=== PATIENT | female | born 1970 | race African-American/Black ===

== ENCOUNTER 2017-01-13 11:32 | Emergency (ER) | payer OTHER ==
[2017-01-13 11:40] VITALS: BP 164/74; BMI 29.6
--- NOTE | 2017-01-13 12:19 | DR.GENAD ---
HPI - PCP Primary Care Physician: ??? - HPI Comment HPI Comment: HISTORY BELOW. - Complaint/Symptoms Chief Complaint Doctors Comments: OUT OF CLONIDINE. TAKE 0.3MG TID. NEXT DOSE DUE AT 2PM TODAY. BP ELEVATED IN ED. Chief Complaint:: PT STATES " I TOOK MY LAST CLONDINE THIS AM AND I AM OUT".. 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 - Family History History of Family Medical Conditions: Yes Family Medical History: Diabetes Mellitus, Hypertension - Social History Does patient currently use any type of tobacco product: No Have you used tobacco products in the last 12 months: No Type of Tobacco Use: None Does any household member use tobacco: No Alcohol Use: None Do you use any recreational Drugs:: No Lives With: Family Lives Where: Home - infectious screening In the last 2 months have you had wt loss of >10#?: NO Have you had fever, night sweats or hemotysis?: No Have you traveled outside the country in the last 6 months?: No Isolation: Standard ROS - Review of Systems Constitutional: No Symptoms Reported Eyes: No Symptoms Reported ENTM: No Symptoms Reported Respiratoy: No Symptoms Reported Cardiovascular: No Symptoms Reported Gastrointestinal/Abdominal: No Symptoms Reported Genitourinary: No Symptoms Reported Neurological: No Symptoms Reported Musculoskeletal: Back Pain (CHRONIC) Integumentary: No Symptoms Reported Hematologic/Lymphatic: No Symptoms Reported Endocrine: No Symptoms Reported All Other Systems: Reviewed and Negative PE - Vital Signs Vitals: Pulse Rate 111 Respiratory Rate 18 Blood Pressure [Left Arm] 111/72 Blood Pressure [Right Arm] 122/78 Blood Pressure 164/74 O2 Sat by Pulse Oximetry 97 - General Limitations: No Limitations - Head Head Exam: Normal Inspection - Eyes Eye exam: Normal Appearance - ENT ENT Exam: Normal External Ear Exam External Ear Exam: Normal External Inspection TM/Canal Exam: Bilateral Normal Mouth Exam: Normal Inspection Throat Exam: Normal Inspection - Neck Neck Exam: Trachea Midline - Chest Chest Inspection: Symmetric Chest Wall Rise - Respiratory Respiratory Exam: Normal Lung Sounds Bilat Respiratory Exam: Bilateral Clear to Auscultation - Cardiovascular Cardiovascular Exam: Regular Rate, Normal Rhythm, Normal Heart Sounds - Abdominal Exam Abdominal Exam: Normal Inspection - Extremities Extremities Exam: Normal Inspection - Back Back Exam: Normal Inspection - Neurologic Neurological Exam: Alert, Oriented X3 - Skin Skin Exam: Normal Color MDM - Differential Diagnosis Differential Diagnosis: HYPERTENSION Course - Education/Counseling Education/Counseling: Patient, Education Educated On: Diagnosis, Needs for Follow Up - Diagnosis Discharge Problem: Hypertension Qualifiers: Hypertension type: essential hypertension Qualified Code(s): I10 - Essential ( primary) hypertension - Discharge Plan Condition: Stable Prescriptions: Clonidine [Catapres-Tts 1] 0.1 mg TD TID #21 dis - Follow ups/Referrals Follow ups/Referrals: NFD,None [Primary Care Provider] - 3 days - Instructions Instructions: Hypertension Additional Instructions: RETURN TO ED IF WORSE.
== END 2017-01-13 12:25 | disposition home or self-care (01) ==
LOC: ER 11:32
DX: I10 Essential (primary) hypertension (principal)
CPT/HCPCS: 99281; 99282

== ENCOUNTER 2017-01-20 09:49 | Emergency (ER) | payer OTHER ==
[2017-01-20 10:02] VITALS: BP 136/105; BMI 27.8
--- NOTE | 2017-01-20 10:06 | DR.HYPOGLY ---
HPI - Time Seen Time seen: 09:57 - PCP Primary Care Physician: NFD - Complaint Chief Complaint Doctors Comments: Patient states that she is visiting from [place] , and she has been having problems with elevated blood sugars. She also admits to a risen of the left axilla that hurts. Chief Complaint:: PT. STATES HER BLOOD SUGAR HAS BEEN RUNNING HIGH FOR SOME DAYS NOW. PT. STATES SHE HAS A RISING OR SOMETHING UNDER HER LEFT ARM BECAUSE IT HURTS AND IT'S BEEN THERE FOR A WHILE. 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 - Family History History of Family Medical Conditions: Yes Family Medical History: Diabetes Mellitus, Hypertension - Social History Does patient currently use any type of tobacco product: No Have you used tobacco products in the last 12 months: No Type of Tobacco Use: None Does any household member use tobacco: No Alcohol Use: None Do you use any recreational Drugs:: No Lives With: Family Lives Where: Home - infectious screening In the last 2 months have you had wt loss of >10#?: NO Have you had fever, night sweats or hemotysis?: No Have you traveled outside the country in the last 6 months?: No Isolation: Standard ROS - Review of Systems Eyes: No Symptoms Reported ENTM: No Symptoms Reported Respiratoy: No Symptoms Reported Cardiovascular: No Symptoms Reported Gastrointestinal/Abdominal: No Symptoms Reported Genitourinary: No Symptoms Reported Neurological: No Symptoms Reported Musculoskeletal: No Symptoms Reported Integumentary: No Symptoms Reported Hematologic/Lymphatic: No Symptoms Reported Endocrine: No Symptoms Reported Psychiatric: No Symptoms Reported All Other Systems: Reviewed and Negative PE - Vital Signs Vitals: Temperature 98.3 F Pulse Rate 93 Respiratory Rate 18 Blood Pressure [Left Arm] 111/72 Blood Pressure [Right Arm] 122/78 Blood Pressure 136/105 O2 Sat by Pulse Oximetry 97 - General Limitations: No Limitations General Appearance: Alert, In No Apparent Distress - Eyes Eye exam: Normal Appearance, PERRL, EOMI Pupils: Regular, Round: Bilateral Sclera/Conjunctival: Normal Inspection: Bilateral - ENT ENT Exam: Normal Exam, Normal Oropharynx Nose Exam: Normal Nose Exam Mouth Exam: Normal Inspection Throat Exam: Normal Inspection - Neck Neck Exam: Normal Inspection, Full ROM - Chest Chest Inspection: Normal Inspection - Respiratory Respiratory Exam: Normal Lung Sounds Bilat Respiratory Exam: Bilateral Clear to Auscultation - Cardiovascular Cardiovascular Exam: Regular Rate, Normal Rhythm - Abdominal Exam Abdominal Exam: Normal Inspection, Normal Bowel Sounds Abdominal Tenderness: negative: RUQ, RLQ, LUQ, LLQ, Epigastrium, Suprapubic, Diffuse, Mild, Moderate, Severe, Other - Extremities Extremities Exam: Normal Inspection - Back Back Exam: Normal Inspection - Neurologic Neurological Exam: Alert, Oriented X3, CN II-XII Intact Speech: Fluid Speech - Skin Skin Exam: Warm, Dry (left axilla anterior superior border with a papule, non erythematous but tender) Course - Reevaluation 1st: Improved ROR - Labs Reviewed Result Diagrams: 01/20/17 10:40 01/20/17 10:40 Laboratory: WBC 13.5 X10^3/uL (3.6-10.0) H 01/20/17 10:40 RBC 4.66 X10^6/uL (3.5-5.4) 01/20/17 10:40 Hgb 12.8 g/dL (12.0-16.0) 01/20/17 10:40 Hct 38.5 % (36.0-47.0) 01/20/17 10:40 MCV 82.5 fL (80.0-100.0) 01/20/17 10:40 MCH 27.4 pg (27.0-34.0) 01/20/17 10:40 MCHC 33.3 g/dL (33.0-35.0) 01/20/17 10:40 RDW 15.0 % (11.6-16.5) 01/20/17 10:40 Plt Count 610 X10^3/uL (150.0-450.0) H 01/20/17 10:40 Plt Count Comment Increased (ADEQUATE) A 01/20/17 10:40 MPV 8.1 fL (7.4-11.0) 01/20/17 10:40 Neut % 59.6 % (42.0-75.0) 01/20/17 10:40 Lymph % 31.8 % (21.0-51.0) 01/20/17 10:40 [place] % 5.9 % (0.0-13.0) 01/20/17 10:40 Eos % 1.3 % (0.9-2.9) 01/20/17 10:40 Baso % 1.4 % (0.2-1.0) H 01/20/17 10:40 Neut # 8.1 x10^3/uL (2.2-4.8) H 01/20/17 10:40 Lymph # 4.3 X10^3/uL (1.3-2.9) H 01/20/17 10:40 [place] # 0.8 x10^3/uL (0.3-0.8) 01/20/17 10:40 Eos # 0.2 x10^3/uL (0.0-0.2) 01/20/17 10:40 Baso # 0.2 X10^3/uL (0.0-0.1) H 01/20/17 10:40 Absolute Nucleated RBC 0.0 /100WBC 01/20/17 10:40 Plt Morphology Comment Normal (NORMAL) 01/20/17 10:40 RBC Morphology Normal (NORMAL) 01/20/17 10:40 Sodium 136 mmol/L (136-145) 01/20/17 10:40 Corrected Sodium 140 mmol/L (136-145) 01/20/17 10:40 Potassium 4.4 mmol/L (3.5-5.1) 01/20/17 10:40 Chloride 102 mmol/L (98-107) 01/20/17 10:40 Carbon Dioxide 30.4 mmol/L (21-32) 01/20/17 10:40 BUN 19 mg/dL (7-18) H 01/20/17 10:40 Creatinine 1.15 mg/dL (0.55-1.02) H 01/20/17 10:40 Est GFR (MDRD) Af Amer > 60 (>60) 01/20/17 10:40 Est GFR (MDRD) Non-Af 54 (>60) L 01/20/17 10:40 Glucose 280 mg/dL (65-99) H 01/20/17 10:40 Hemoglobin A1c 8.9 % (4.5-6.2) H 01/20/17 10:40 Calcium 10.5 mg/dL (8.5-10.1) H 01/20/17 10:40 Corrected Calcium TNP 01/20/17 10:40 Total Bilirubin 0.20 mg/dL (0.2-1.0) 01/20/17 10:40 AST 22 Units/L (15-37) 01/20/17 10:40 ALT 40 Units/L (12-78) 01/20/17 10:40 Alkaline Phosphatase 80 Units/L (46-116) 01/20/17 10:40 C-Reactive Protein 4.60 mg/L (0-3.0) H 01/20/17 10:40 Total Protein 7.0 g/dL (6.4-8.2) 01/20/17 10:40 Albumin 3.7 g/dL (3.4-5.0) 01/20/17 10:40 Globulin 3.3 g/dL (2.5-4.5) 01/20/17 10:40 Albumin/Globulin Ratio 1.1 Ratio (1.1-2.1) 01/20/17 10:40 Specimen Type Clean catch urine 01/20/17 11:49 Urine Color Yellow (YELLOW) 01/20/17 11:49 Urine Appearance Clear (CLEAR) 01/20/17 11:49 Urine pH 5.0 (5.0 - 8.0) 01/20/17 11:49 Ur Specific [place] 1.020 (1.000-1.030) 01/20/17 11:49 Urine Protein 2+ (NEGATIVE) 01/20/17 11:49 Urine Glucose (UA) 3+ (NEGATIVE) 01/20/17 11:49 Urine Ketones Negative (NEGATIVE) 01/20/17 11:49 Urine Occult Blood Negative (NEGATIVE) 01/20/17 11:49 Urine Nitrite Negative (NEGATIVE) 01/20/17 11:49 Urine Bilirubin Negative (NEGATIVE) 01/20/17 11:49 Urine Urobilinogen Normal (NORMAL) 01/20/17 11:49 Ur Leukocyte Esterase Negative (NEGATIVE) 01/20/17 11:49 Urine RBC None seen /HPF (NEGATIVE) 01/20/17 11:49 Urine WBC None seen /HPF (NEGATIVE) 01/20/17 11:49 Ur Squamous Epith Cells Rare /HPF (NEGATIVE) 01/20/17 11:49 Urine Bacteria Negative /HPF (NEGATIVE) 01/20/17 11:49 Ur Culture Indicated? No/not indicated 01/20/17 11:49 - Diagnosis Discharge Problem: Carbuncle of axilla, Thrombocytosis - Discharge Plan Condition: Stable - Follow ups/Referrals Follow ups/Referrals: NFD,None [Primary Care Provider] - 3 days - Instructions
[2017-01-20] MEDS ORDERED: NS 1000 ML 1,000 ML IV ONE (10:09)
[2017-01-20] MEDS ORDERED: CLEOCIN VIAL 600 MG 900 MG in D5W 50 ML IV 50 ML IV ONE (10:17)
[2017-01-20] MEDS ORDERED: NS 1000 ML 1,000 ML ONE (10:37)
[2017-01-20 10:53] LABS: BASOPHILS # (AUTO) 0.2 X10^3/uL (0.0-0.1); BASOPHILS % (AUTO) 1.4 % (0.2-1.0); EOSINOPHILS # (AUTO) 0.2 x10^3/uL (0.0-0.2); EOSINOPHILS % (AUTO) 1.3 % (0.9-2.9); HEMATOCRIT 38.5 % (36.0-47.0); HEMOGLOBIN 12.8 g/dL (12.0-16.0); LYMPHOCYTES # (AUTO) 4.3 X10^3/uL (1.3-2.9); LYMPHOCYTES % (AUTO) 31.8 % (21.0-51.0); MEAN CORPUSCULAR HEMOGLOBIN 27.4 pg (27.0-34.0); MEAN CORPUSCULAR HGB CONC 33.3 g/dL (33.0-35.0); MEAN CORPUSCULAR VOLUME 82.5 fL (80.0-100.0); MEAN PLATELET VOLUME 8.1 fL (7.4-11.0); MONOCYTES # (AUTO) 0.8 x10^3/uL (0.3-0.8); MONOCYTES % (AUTO) 5.9 % (0.0-13.0); NEUTROPHILS # (AUTO) 8.1 x10^3/uL (2.2-4.8); NEUTROPHILS % (AUTO) 59.6 % (42.0-75.0); PLATELET COUNT 610 X10^3/uL (150.0-450.0); RED BLOOD COUNT 4.66 X10^6/uL (3.5-5.4); WHITE BLOOD COUNT 13.5 X10^3/uL (3.6-10.0)
[2017-01-20] MEDS ORDERED: CLEOCIN 300 MG IV PREMIX 300 MG/50 ML BAG IV ONE (10:57)
[2017-01-20] MEDS ORDERED: CLEOCIN VIAL 600 MG ONE (10:57)
[2017-01-20 11:01] LABS: ALANINE AMINOTRANSFERASE 40 Units/L (12-78); ALBUMIN 3.7 g/dL (3.4-5.0); ALKALINE PHOSPHATASE 80 Units/L (46-116); ASPARTATE AMINO TRANSFERASE 22 Units/L (15-37); BLOOD UREA NITROGEN 19 mg/dL (7-18); CALCIUM 10.5 mg/dL (8.5-10.1); CARBON DIOXIDE 30.4 mmol/L (21-32); CHLORIDE 102 mmol/L (98-107); COR NA(FOR HYPERGLY) 140 mmol/L (136-145); CREATININE 1.15 mg/dL (0.55-1.02); GLUCOSE 280 mg/dL (65-99); SODIUM 136 mmol/L (136-145); eGFR BLACK RACES > 60 (>60); eGFR NON BLACK RACES 54 (>60)
[2017-01-20 11:02] LABS: PLATELET MORPHOLOGY COMMENT NORMAL (NORMAL)
[2017-01-20 11:05] LABS: HEMOGLOBIN A1C 8.9 % (4.5-6.2)
[2017-01-20] MEDS ORDERED: TORADOL 30 MG VIAL IVP ONE (12:06)
[2017-01-20] MEDS ORDERED: TORADOL 30 MG VIAL ONE (12:07)
[2017-01-20 12:10] LABS: BILIRUBIN,URINE NEGATIVE (NEGATIVE); BLOOD/HEMOGLOBIN,URINE NEGATIVE (NEGATIVE); GLUCOSE, URINE 3+ (NEGATIVE); KETONES,URINE NEGATIVE (NEGATIVE); LEUKOCYTE ESTERASE ,URINE NEGATIVE (NEGATIVE); NITRITES,URINE NEGATIVE (NEGATIVE); PROTEIN,URINE 2+ (NEGATIVE); UROBILINOGEN,URINE NORMAL (NORMAL)
[2017-01-20 12:20] LABS: APPEARANCE,URINE CLEAR (CLEAR); BACTERIA,URINE NEGATIVE /HPF (NEGATIVE); COLOR,URINE YELLOW (YELLOW); RBC,URINE NONE SEEN /HPF (NEGATIVE); SQUAMOUS EPITHELIAL CELL,UR RARE /HPF (NEGATIVE)
== END 2017-01-20 13:05 | disposition home or self-care (01) ==
LOC: ER 09:56
DX: D47.3 Essential (hemorrhagic) thrombocythemia (principal); L02.432 Carbuncle of left axilla
CPT/HCPCS: 36415; 36591; 80053; 81001; 83036; 85025; 86140; 96365; 96374; 99282; 99283; A4222; S0077; J1885

== ENCOUNTER 2019-06-06 21:44 | Observation (INO) ==
[2019-06-06 21:57] VITALS: BMI 27.8
--- NOTE | 2019-06-06 22:20 | DR.NAUSEAF ---
HPI - Time Seen Time seen: 22:08 - Primary Care Physician Primary Care Physician: NFD - Complaints Chief Complaint Doctors Comments: Patient states she has been vomiting and unable to keep anything down for three days. States she was at her daughter's house and fell down the steps today and hurt her left knee. She has been able to walk on it but it hurts. states she is have a severe headache and this is the worst headache or her life because she do not usually have a headache. States she is taking Dilaudid 4mg three times daily because she has herniated discs in her back and she has had blood clots in her lung, chest and legs and she is taking Eliquis 10mg daily. She denies tobacco or alcohol usage. States she has not been able to keep her medicines down today. Patient states she had Stage 4 Hodgkins Lymphoma and they took her speen out. she is seeing an inspector integrated circuits about her hypercalcema. States she can tell her calcium is up because she is cramping and is nauseated Chief Complaint:: PT STATES THAT SHE HAS HYPERCALCEMIA. STATES SHE HAS BEEN THROWING UP ALL DAY. STATES SHE ALSO FELL DOWN THE STAIRS AND HURT HER LEFT KNEE. STATES "I JUST FEEL BAD." - Reviewed Nurses Notes Reviewed: Yes - Source History Provided: Patient - Mode of Arrival Mode of Arrival: Ambulatory - Timing Onset of Chief Complaint: 06/05/19 - Context Onset: Spontaneous Recent: None Possible Ingestion: Unknown : No History of: None - Quality Quality: Bilious - Associated Signs and Symptoms Abdominal Pain Quality: Aching, Sharp Abdominal Pain Location: Diffuse Symptoms: Abdominal Pain, Diarrhea PMH - PMH Past Medical History: Yes Past Medical History: COPD, Diabetes Past Surgical History: Yes Surgical History: Ortho Surgery, Spleenectomy - Family History History of Family Medical Conditions: Yes Family Medical History: Diabetes Mellitus, Hypertension - Social History Alcohol Use: None Do you use any recreational Drugs:: No Lives With: Alone Lives Where: Home - infectious screening In the last 2 months have you had wt loss of >10#?: NO Have you traveled outside the country in the last 6 months?: No Isolation: Standard ROS - Review of Systems Constitutional: No Symptoms Reported Eyes: No Symptoms Reported ENTM: No Symptoms Reported Respiratoy: No Symptoms Reported Cardiovascular: No Symptoms Reported Gastrointestinal/Abdominal: No Symptoms Reported, Abdominal Pain, Diarrhea, Nausea, Vomiting Genitourinary: No Symptoms Reported Neurological: No Symptoms Reported Musculoskeletal: No Symptoms Reported, Back Pain (chronic), Left, Knee Integumentary: No Symptoms Reported. negative: Wound (healed surgical scars left lower leg and knee) Hematologic/Lymphatic: Anemia, Blood Clots Endocrine: No Symptoms Reported Psychiatric: No Symptoms Reported PE - General Limitations: No Limitations General Appearance: Alert, In Distress (moderate) - Head Head Exam: Normal Inspection, Atraumatic, Normocephalic - Eyes Eye exam: Normal Appearance, PERRL, EOMI. negative: Scleral Icterus, Conjunctival Injection, Nystagmus, Miosis, Mydrasis, Periorbital Swelling, Periorbital Tenderness, Other - ENT ENT Exam: Normal Exam, Normal Oropharynx, Normal External Ear Exam, Mucous Membranes Moist, TM's Normal Bilaterally - Neck Neck Exam: Normal Inspection, Full ROM, Trachea Midline - Chest Chest Inspection: Normal Inspection, Symmetric Chest Wall Rise - Respiratory Respiratory Exam: Normal Lung Sounds Bilat Respiratory Exam: Bilateral Clear to Auscultation - Cardiovascular Cardiovascular Exam: Regular Rate, Normal Rhythm, Normal Heart Sounds - Abdominal Exam Abdominal Exam: Normal Inspection, Normal Bowel Sounds, Soft, Distention, Tenderness (RUQ and hypogastric tenderness), Guarding Abdominal Tenderness: RUQ, RLQ, Epigastrium, Suprapubic, Moderate - Rectal Rectal Exam: Deferred - External Exam: Female: Deferred : Speculum Exam (Female): Deferred : Bimanual Exam (female): Deferred - Extremities Extremities Exam: Normal Inspection, Full ROM, Tenderness (left knee with healed surgical scars, tender; no erythema or swelling), Normal Capillary Refill - Back Back Exam: Normal Inspection, Full ROM - Neurologic Neurological Exam: Alert, Oriented X3, CN II-XII Intact, Reflexes Normal. negat yael: Normal Gait (gait not tested) - Psychiatric Psychiatric Exam: Normal Affect, Normal Mood, Agitated. negative: Depressed, Anxious, Flat Affect, Manic, Homicidal Ideation, Suicidal Ideation, Other - Skin Skin Exam: Warm, Dry, Intact, Normal Color. negative: Rash, Cyanosis, Diaphoresis, Erythema, Pallor, Mottled, Other - Vital Signs Vitals: Temperature 98 F Pulse Rate 90 Respiratory Rate 18 Blood Pressure [Left Arm] 111/72 Blood Pressure [Right Arm] 122/78 Blood Pressure 190/94 O2 Sat by Pulse Oximetry 97 Course - Consultation Called: 01:31 Call Returned: 01:31 (Dr. Zepeda to admit) - Education/Counseling Education/Counseling: Patient, Family Educated On: Treatment, Diagnosis, Needs for Follow Up ROR - Labs Reviewed Laboratory Results Reviewed?: Yes (All labs and x-ray results reviewed and discussed with patient) Result Diagrams: 06/07/19 00:20 06/07/19 00:20 - XRAY XRAY Interpreted by: Radiologist (CT Head: No acute intracranial abnormality. CT abdomen and pelvis: No acute abnormality. Hepatomegaly. constipation.), Self (Left knee: No acute osseous abnormality of the knee identified. Postsurgical changes. Pretibial swelling nonspecific.) XRAY Findings: CXR: No acute chest process.. Left knee:Postsurgical changes of proximal t - Labs Reviewed Laboratory: WBC 18.3 X10^3/uL (3.6-10.0) H 06/07/19 00:20 RBC 4.88 X10^6/uL (3.5-5.4) 06/07/19 00:20 Hgb 13.0 g/dL (12.0-16.0) 06/07/19 00:20 Hct 40.0 % (36.0-47.0) 06/07/19 00:20 MCV 82.0 fL (80.0-100.0) 06/07/19 00:20 MCH 26.7 pg (27.0-34.0) L 06/07/19 00:20 MCHC 32.6 g/dL (33.0-35.0) L 06/07/19 00:20 RDW 16.1 % (11.6-16.5) 06/07/19 00:20 Plt Count 531 X10^3/uL (150.0-450.0) H 06/07/19 00:20 MPV 8.4 fL (7.4-11.0) 06/07/19 00:20 Neut % (Auto) 44.7 % (42.0-75.0) 06/07/19 00:20 Lymph % (Auto) 46.0 % (21.0-51.0) 06/07/19 00:20 [place] % (Auto) 5.6 % (0.0-13.0) 06/07/19 00:20 Eos % (Auto) 1.9 % (0.9-2.9) 06/07/19 00:20 Baso % (Auto) 1.8 % (0.2-1.0) H 06/07/19 00:20 Neut # (Auto) 8.2 x10^3/uL (2.2-4.8) H 06/07/19 00:20 Lymph # (Auto) 8.4 X10^3/uL (1.3-2.9) H 06/07/19 00:20 [place] # (Auto) 1.0 x10^3/uL (0.3-0.8) H 06/07/19 00:20 Eos # (Auto) 0.3 x10^3/uL (0.0-0.2) H 06/07/19 00:20 Baso # (Auto) 0.3 X10^3/uL (0.0-0.1) H 06/07/19 00:20 Absolute Nucleated RBC 0.3 /100WBC 06/07/19 00:20 PT 13.0 SECONDS (11.8-14.3) 06/07/19 00:20 INR Target Range - 06/07/19 00:20 INR 1.02 (0.8-1.3) 06/07/19 00:20 APTT 28.6 SECONDS (22.9-36.5) 06/07/19 00:20 PTT Comment - 06/07/19 00:20 Sodium 134 mmol/L (136-145) L 06/07/19 00:20 Corrected Sodium 141 mmol/L (136-145) 06/07/19 00:20 Potassium 4.0 mmol/L (3.5-5.1) 06/07/19 00:20 Chloride 97 mmol/L (98-107) L 06/07/19 00:20 Carbon Dioxide 30.5 mmol/L (21-32) 06/07/19 00:20 BUN 10 mg/dL (7-18) 06/07/19 00:20 Creatinine 1.15 mg/dL (0.55-1.02) H 06/07/19 00:20 Est GFR (MDRD) Af Amer > 60 (>60) 06/07/19 00:20 Est GFR (MDRD) Non-Af 53 (>60) L 06/07/19 00:20 Glucose 402 mg/dL (65-99) H 06/07/19 00:20 Calcium 11.6 mg/dL (8.5-10.1) H 06/07/19 00:20 Corrected Calcium TNP 06/07/19 00:20 Magnesium 1.6 mg/dL (1.7-2.9) L 06/07/19 00:20 Total Bilirubin 0.30 mg/dL (0.2-1.0) 06/07/19 00:20 AST 27 Units/L (15-37) 06/07/19 00:20 ALT 49 Units/L (12-78) 06/07/19 00:20 Alkaline Phosphatase 148 Units/L (46-116) H 06/07/19 00:20 Creatine Kinase 148 Units/L (26-192) 06/07/19 00:20 CK-MB (CK-2) 3.0 ng/mL (0-4.0) 06/07/19 00:20 CK/CKMB % Calc 2.0 % (<4) 06/07/19 00:20 Troponin I 0.02 ng/mL (0-1.5) 06/07/19 00:20 Total Protein 7.9 g/dL (6.4-8.2) 06/07/19 00:20 Albumin 4.2 g/dL (3.4-5.0) 06/07/19 00:20 Globulin 3.7 g/dL (2.5-4.5) 06/07/19 00:20 Albumin/Globulin Ratio 1.1 Ratio (1.1-2.1) 06/07/19 00:20 Amylase 85 Units/L (25-115) 06/07/19 00:20 Lipase 443 Units/L (73-393) H 06/07/19 00:20 HCG, Qual Negative <10 mIU/mL 06/07/19 00:20 Opioid - Opioid Risk Tool Total: 0 Total Score Risk Category: Low Risk - Diagnosis Discharge Problem: Hypercalcemia, Gastroenteritis, Hyperglycemia, Hepatomegaly, Accelerated hypertension Chronic pancreatitis Qualifiers: Pancreatitis type: unspecified pancreatitis type Qualified Code(s): K86.1 - Other chronic pancreatitis Left knee pain Qualifiers: Chronicity: acute Qualified Code(s): M25.562 - Pain in left knee Headache Qualifiers: Headache chronicity pattern: unspecified pattern Intractability: not intractable Leukocytosis Qualifiers: Leukocytosis type: unspecified Qualified Code(s): D72.829 - Elevated white blood cell count, unspecified - Discharge Plan Condition: Stable - Follow ups/Referrals Follow ups/Referrals: NFD,None [Primary Care Provider] - 3 days - Instructions
[2019-06-06] MEDS ORDERED: ZOFRAN INJ 4 MG VIAL IVP ONE (22:24)
[2019-06-06] MEDS ORDERED: DEMEROL INJ IVP ONE (22:25)
[2019-06-06] MEDS ORDERED: PHENERGAN INJ 25 MG IM ONE ×2 (22:25→23:04)
[2019-06-06] MEDS ORDERED: NS 1000 ML 1,000 ML IV SCH (23:00)
[2019-06-06] MEDS ORDERED: DEMEROL INJ ONE (23:05)
--- NOTE | 2019-06-06 23:25 | CT ---
CT head without contrastIndication: Occipital and temporal headacheComparison: 02/02/2015Technique: CT images of the head were obtained without contrast. Automatic exposure control was utilized.Findings: There is no acute bleed, mass effect, or abnormal extra-axial collection. The ventricles are symmetric and nondilated. No acute osseous abnormality observed. The visualized paranasal sinuses and mastoid air cells are clear.Impression: No acute intracranial abnormality.Reported By:
--- NOTE | 2019-06-06 23:42 | CT ---
CT abdomen and pelvis without contrastIndication: Vomiting, diarrhea, abdominal distentionComparison: 01/15/2015Technique: CT images of the abdomen and pelvis were obtained without contrast. Automatic exposure control was utilized.Findings: There is mild subsegmental atelectasis of the lung bases. No acute osseous abnormality.Evaluation of the abdominal pelvic viscera is limited without contrast. Mild liver enlargement is similar to prior. The liver contours are normal. Interval splenectomy noted. Within noncontrast limitations, the gallbladder, stomach, pancreas, adrenals, and kidneys are unremarkable. No radiopaque ureteral stone or hydroureter is identified. There is mildly increased colonic stool burden, suggesting constipation. Otherwise, no marked thickening or dilatation of the lower GI tract is identified. The appendix is normal. Uterus is noted. The urinary bladder and rectum are unremarkable. No free fluid or bulky adenopathy.There is nonspecific subcutaneous fat stranding along the lower abdominal wall, more prominent on the left. No soft tissue gas or associated collection is observed.Impression: No acute abnormality identified within the abdomen and pelvis, within non contrast limitations.Suggestion of constipation. Stable hepatomegaly. Interval splenectomy.Nonspecific subcutaneous fat stranding of the lower abdominal wall. Correlate with exam.Reported By:
[2019-06-07 00:30] LABS: BASOPHILS # (AUTO) 0.3 X10^3/uL (0.0-0.1); BASOPHILS % (AUTO) 1.8 % (0.2-1.0); EOSINOPHILS # (AUTO) 0.3 x10^3/uL (0.0-0.2); EOSINOPHILS % (AUTO) 1.9 % (0.9-2.9); LYMPHOCYTES # (AUTO) 8.4 X10^3/uL (1.3-2.9); MEAN CORPUSCULAR HEMOGLOBIN 26.7 pg (27.0-34.0); MEAN CORPUSCULAR HGB CONC 32.6 g/dL (33.0-35.0); MEAN PLATELET VOLUME 8.4 fL (7.4-11.0); MONOCYTES % (AUTO) 5.6 % (0.0-13.0); NEUTROPHILS # (AUTO) 8.2 x10^3/uL (2.2-4.8); NEUTROPHILS % (AUTO) 44.7 % (42.0-75.0); PLATELET COUNT 531 X10^3/uL (150.0-450.0); RED BLOOD COUNT 4.88 X10^6/uL (3.5-5.4); RED CELL DISTRIBUTION WIDTH 16.1 % (11.6-16.5); WHITE BLOOD COUNT 18.3 X10^3/uL (3.6-10.0)
--- NOTE | 2019-06-07 00:32 | RAD ---
Chest, 1 viewIndication: Chest painComparison: 02/02/2015Findings: Cardiac silhouette is unremarkable. There is a right jugular approach Port-A-Cath with the tip overlying the SVC. Aside from minimal basilar subsegmental atelectasis, the lungs are essentially clear without focal infiltrates or pleural effusion. No pneumothorax.Impression: No acute chest process.Reported By:
[2019-06-07 00:35] LABS: SERUM PREGNANCY TEST, QUAL NEGATIVE <10 mIU/mL
--- NOTE | 2019-06-07 00:35 | RAD ---
Left knee, 3 viewsIndication: Fall, knee painComparison: NoneFindings: There is methacrylate cement within the proximal tibial metaphysis. With nonspecific swelling overlying the proximal tibia. There is mild tricompartmental degenerative disease of the knee. No acute cortical disruption or malalignment is identified. No significant joint effusion.Impression: Postsurgical changes of the proximal tibia. Nonspecific overlying pretibial swelling. No acute osseous abnormality of the knee identified.Reported By:
[2019-06-07 00:45] LABS: BLOOD UREA NITROGEN 10 mg/dL (7-18); CALCIUM 11.6 mg/dL (8.5-10.1); CARBON DIOXIDE 30.5 mmol/L (21-32); CHLORIDE 97 mmol/L (98-107); COR NA(FOR HYPERGLY) 141 mmol/L (136-145); CREATININE 1.15 mg/dL (0.55-1.02); SODIUM 134 mmol/L (136-145); TROPONIN I 0.02 ng/mL (0-1.5); eGFR NON BLACK RACES 53 (>60)
[2019-06-07] MEDS ORDERED: BENADRYL INJ 50 MG VIAL IVP STA (00:48)
[2019-06-07 00:49] LABS: ALANINE AMINOTRANSFERASE 49 Units/L (12-78); ALBUMIN 4.2 g/dL (3.4-5.0); ALKALINE PHOSPHATASE 148 Units/L (46-116); AMYLASE 85 Units/L (25-115); ASPARTATE AMINO TRANSFERASE 27 Units/L (15-37); CREATINE KINASE 148 Units/L (26-192); LIPASE 443 Units/L (73-393); MAGNESIUM 1.6 mg/dL (1.7-2.9); TOTAL PROTEIN 7.9 g/dL (6.4-8.2)
[2019-06-07] MEDS ORDERED: BENADRYL INJ 50 MG VIAL ONE (00:49)
[2019-06-07] MEDS ORDERED: CATAPRES TAB 0.2 MG PO ONE (00:49)
[2019-06-07] MEDS ORDERED: ROCEPHIN VIAL 1 GRAM 1 G in NS 100 ML IV + SPIKE MINIBAG* 100 ML IV ONE (00:49)
[2019-06-07] MEDS ORDERED: CATAPRES TAB 0.2 MG ONE (00:49)
[2019-06-07] MEDS ORDERED: ROCEPHIN VIAL 1 GRAM ONE (00:51)
[2019-06-07] MEDS ORDERED: NS 100 ML IV + SPIKE MINIBAG* 100 ML IV ONE (00:52)
[2019-06-07] MEDS ORDERED: HumuLIN R IV STA (01:04)
[2019-06-07] MEDS ORDERED: LASIX IVP ONE ×2 (01:09→01:38)
[2019-06-07] MEDS ORDERED: HumuLIN R ONE ×2 (01:38→06:17)
[2019-06-07 03:23] LABS: BILIRUBIN,URINE NEGATIVE (NEGATIVE); BLOOD/HEMOGLOBIN,URINE NEGATIVE (NEGATIVE); GLUCOSE, URINE 4+ (NEGATIVE); KETONES,URINE NEGATIVE (NEGATIVE); LEUKOCYTE ESTERASE ,URINE NEGATIVE (NEGATIVE); NITRITES,URINE NEGATIVE (NEGATIVE); PH,URINE 6.5 (5.0 - 8.0); PROTEIN,URINE 3+ (NEGATIVE); UROBILINOGEN,URINE NORMAL (NORMAL)
[2019-06-07 03:26] LABS: APPEARANCE,URINE CLEAR (CLEAR); BACTERIA,URINE NEGATIVE /HPF (NEGATIVE); COLOR,URINE PALE YELLOW (YELLOW); RBC,URINE NONE SEEN /HPF (0-3); SQUAMOUS EPITHELIAL CELL,UR RARE /HPF (NEGATIVE)
[2019-06-07] MEDS: NS 1000 ML 1,000 ML IV SCH ×3 (03:27→17:10)
[2019-06-07] MEDS ORDERED: DILAUDID ONE (04:45)
[2019-06-07] MEDS: DILAUDID PO ONE ×2 (04:50→04:52)
[2019-06-07] MEDS: NEURONTIN CAP 300 MG PO SCH ×3 (05:51→21:17)
[2019-06-07] MEDS ORDERED: CATAPRES TAB 0.3 MG PO SCH (06:00)
[2019-06-07] MEDS ORDERED: MAGNESIUM SULFATE 1 GRAM/100 mL PREMIX 1 G/100 ML BAG IV ONE (06:15)
[2019-06-07] MEDS: MAGNESIUM SULFATE 1 GRAM/100 mL PREMIX 1 GM/100 ML BAG IV PRN ×2 (06:20→09:06)
[2019-06-07] MEDS: HumuLIN R SUBCUT PRN ×4 (06:22→20:16)
[2019-06-07 06:24] LABS: ALANINE AMINOTRANSFERASE 42 Units/L (12-78); ALBUMIN 3.7 g/dL (3.4-5.0); ALKALINE PHOSPHATASE 135 Units/L (46-116); ASPARTATE AMINO TRANSFERASE 25 Units/L (15-37); BLOOD UREA NITROGEN 11 mg/dL (7-18); CALCIUM 10.3 mg/dL (8.5-10.1); CHLORIDE 98 mmol/L (98-107); COR NA(FOR HYPERGLY) 142 mmol/L (136-145); CREATININE 1.03 mg/dL (0.55-1.02); SODIUM 134 mmol/L (136-145); TOTAL PROTEIN 6.8 g/dL (6.4-8.2); eGFR NON BLACK RACES > 60 (>60)
[2019-06-07] MEDS ORDERED: LIPITOR TAB 20 MG ONE (09:00)
[2019-06-07] MEDS ORDERED: ELIQUIS ONE (09:00)
[2019-06-07] MEDS ORDERED: ASPIRIN EC 81 MG PO ONE (09:00)
[2019-06-07] MEDS: ASPIRIN EC 81 MG PO SCH (09:04)
[2019-06-07] MEDS: LIPITOR TAB 20 MG PO SCH (09:05)
[2019-06-07] MEDS: ELIQUIS PO SCH (09:06)
[2019-06-07 09:15] LABS: BASOPHILS # (AUTO) 0.2 X10^3/uL (0.0-0.1); EOSINOPHILS # (AUTO) 0.5 x10^3/uL (0.0-0.2); EOSINOPHILS % (AUTO) 3.2 % (0.9-2.9); HEMATOCRIT 39.8 % (36.0-47.0); HEMOGLOBIN 12.9 g/dL (12.0-16.0); LYMPHOCYTES # (AUTO) 5.1 X10^3/uL (1.3-2.9); LYMPHOCYTES % (AUTO) 35.2 % (21.0-51.0); MEAN CORPUSCULAR HEMOGLOBIN 26.4 pg (27.0-34.0); MEAN CORPUSCULAR HGB CONC 32.5 g/dL (33.0-35.0); MEAN CORPUSCULAR VOLUME 81.2 fL (80.0-100.0); MEAN PLATELET VOLUME 8.1 fL (7.4-11.0); MONOCYTES # (AUTO) 0.9 x10^3/uL (0.3-0.8); MONOCYTES % (AUTO) 5.9 % (0.0-13.0); NEUTROPHILS % (AUTO) 54.7 % (42.0-75.0); PLATELET COUNT 522 X10^3/uL (150.0-450.0); RED CELL DISTRIBUTION WIDTH 15.9 % (11.6-16.5); WHITE BLOOD COUNT 14.6 X10^3/uL (3.6-10.0)
[2019-06-07 09:17] LABS: TSH (3RD GENERATION) 3.82 uIU/mL (0.358-3.74)
[2019-06-07 09:26] LABS: HEMOGLOBIN A1C 11.7 %
[2019-06-07] MEDS ORDERED: BENADRYL CAP/TAB 25 MG PO PRN (11:02)
[2019-06-07] MEDS ORDERED: PHENERGAN INJ 25 MG IM PRN (11:04)
[2019-06-07] MEDS ORDERED: DILAUDID INJ ONE (11:26)
[2019-06-07] MEDS: DILAUDID INJ IVP PRN ×3 (11:38→20:17)
[2019-06-07] MEDS ORDERED: PHENERGAN INJ 25 MG IM ONE (11:45)
[2019-06-07] MEDS ORDERED: BENADRYL CAP/TAB 25 MG PO ONE (11:45)
--- NOTE | 2019-06-07 12:52 | DR.H&P ---
H&P History & Physical for Day of: H&P Date: 06/07/19 Chief Complaint Chief Complaint: intractable nausea, vomiting and a fall Allergies Allergies Allergy/AdvReac Type Severity Reaction Status Date / Time acetaminophen Allergy Verified 06/07/19 01:54 [From Lorcet (hydrocodone)] azithromycin [From Zithromax] Allergy Verified 06/07/19 01:54 butorphanol [From Stadol] Allergy Verified 06/07/19 01:54 codeine Allergy Verified 06/07/19 01:54 hydralazine Allergy Verified 06/07/19 01:54 hydrocodone Allergy Verified 06/07/19 01:54 ibuprofen [From Motrin] Allergy Verified 06/07/19 01:54 ketorolac [From Toradol] Allergy Verified 06/07/19 01:54 levofloxacin [From Levaquin] Allergy Verified 06/07/19 01:54 metoclopramide [From Reglan] Allergy Verified 06/07/19 01:54 morphine Allergy Verified 06/07/19 01:54 nalbuphine [From Nubain] Allergy Verified 06/07/19 01:54 ondansetron [From Zofran] Allergy Verified 06/07/19 01:54 oxycodone Allergy Verified 06/07/19 01:54 propoxyphene Allergy Verified 06/07/19 01:54 [From Darvocet-N] tramadol [From Ultram] Allergy Verified 06/07/19 01:54 History of Present Illness History of Present Illness: Ms. Mcclure is a 49y/o female with a PMH of uncontrolled type 2 DM, Hodgkins lymphoma, Hx of PE and DVT, Hypercalcemia, HTN, chronic opioid user for disc herniation and COPD presented with a 2-3 day hx of nausea and vomiting. She reports not being able to keep anything down since yesterday, including her medications. She states this happens when her calcium is high so she presented to the ED for further care. She also had a fall at home where she injured her knee. ED work-up - Ct head negative - CTAP: enlarged liver and constipation, no acute infectious process - Knee XR: no acute fracture She received a dose of Rocephin, IVF fluids and Lasix. - BP: 190/94, one dose of clonidine Past Medical History Past Medical History: COPD, Diabetes, Hypertension and Liver Disease Additional Medical History: Hodgkins Lymphoma Pulmonary embolism amd DVT Past Surgical History Surgical History: Ortho Surgery, Spleenectomy and Other Family History Family Medical History: Diabetes Mellitus and Hypertension Social History Alcohol Use: None Drug Use: None Medications Home Medications: acetaminophen [From Lorcet (hydrocodone)] Allergy (Verified 06/07/19 01:54) azithromycin [From Zithromax] Allergy (Verified 06/07/19 01:54) butorphanol [From Stadol] Allergy (Verified 06/07/19 01:54) codeine Allergy (Verified 06/07/19 01:54) hydralazine Allergy (Verified 06/07/19 01:54) hydrocodone Allergy (Verified 06/07/19 01:54) ibuprofen [From Motrin] Allergy (Verified 06/07/19 01:54) ketorolac [From Toradol] Allergy (Verified 06/07/19 01:54) levofloxacin [From Levaquin] Allergy (Verified 06/07/19 01:54) metoclopramide [From Reglan] Allergy (Verified 06/07/19 01:54) morphine Allergy (Verified 06/07/19 01:54) nalbuphine [From Nubain] Allergy (Verified 06/07/19 01:54) ondansetron [From Zofran] Allergy (Verified 06/07/19 01:54) oxycodone Allergy (Verified 06/07/19 01:54) propoxyphene [From Darvocet-N] Allergy (Verified 06/07/19 01:54) tramadol [From Ultram] Allergy (Verified 06/07/19 01:54) CONTINUE taking the following medications apixaban [Eliquis] 5 mg PO DAILY 06/07/19 [History] aspirin [Aspir-81] 81 mg PO DAILY 06/07/19 [History] atorvastatin [Lipitor] 20 mg PO DAILY 06/07/19 [History] gabapentin [Neurontin] 800 mg PO DAILY 06/07/19 [History] hydromorphone [Dilaudid] 4 mg PO PRN 06/07/19 [History] promethazine 25 mg PO PRN 06/07/19 [History] Labs Result Diagrams: 06/07/19 09:00 06/07/19 05:50 Labs: Laboratory WBC 14.6 X10^3/uL (3.6-10.0) H 06/07/19 09:00 RBC 4.90 X10^6/uL (3.5-5.4) 06/07/19 09:00 Hgb 12.9 g/dL (12.0-16.0) 06/07/19 09:00 Hct 39.8 % (36.0-47.0) 06/07/19 09:00 MCV 81.2 fL (80.0-100.0) 06/07/19 09:00 MCH 26.4 pg (27.0-34.0) L 06/07/19 09:00 MCHC 32.5 g/dL (33.0-35.0) L 06/07/19 09:00 RDW 15.9 % (11.6-16.5) 06/07/19 09:00 Plt Count 522 X10^3/uL (150.0-450.0) H 06/07/19 09:00 MPV 8.1 fL (7.4-11.0) 06/07/19 09:00 Neut % (Auto) 54.7 % (42.0-75.0) 06/07/19 09:00 Lymph % (Auto) 35.2 % (21.0-51.0) 06/07/19 09:00 [place] % (Auto) 5.9 % (0.0-13.0) 06/07/19 09:00 Eos % (Auto) 3.2 % (0.9-2.9) H 06/07/19 09:00 Baso % (Auto) 1.0 % (0.2-1.0) 06/07/19 09:00 Neut # (Auto) 8.0 x10^3/uL (2.2-4.8) H 06/07/19 09:00 Lymph # (Auto) 5.1 X10^3/uL (1.3-2.9) H 06/07/19 09:00 [place] # (Auto) 0.9 x10^3/uL (0.3-0.8) H 06/07/19 09:00 Eos # (Auto) 0.5 x10^3/uL (0.0-0.2) H 06/07/19 09:00 Baso # (Auto) 0.2 X10^3/uL (0.0-0.1) H 06/07/19 09:00 Absolute Nucleated RBC 0.3 /100WBC 06/07/19 09:00 PT 13.0 SECONDS (11.8-14.3) 06/07/19 00:20 INR Target Range - 06/07/19 00:20 INR 1.02 (0.8-1.3) 06/07/19 00:20 APTT 28.6 SECONDS (22.9-36.5) 06/07/19 00:20 PTT Comment - 06/07/19 00:20 Sodium 134 mmol/L (136-145) L 06/07/19 05:50 Corrected Sodium 142 mmol/L (136-145) 06/07/19 05:50 Potassium 4.2 mmol/L (3.5-5.1) 06/07/19 05:50 Chloride 98 mmol/L (98-107) 06/07/19 05:50 Carbon Dioxide 31.0 mmol/L (21-32) 06/07/19 05:50 BUN 11 mg/dL (7-18) 06/07/19 05:50 Creatinine 1.03 mg/dL (0.55-1.02) H 06/07/19 05:50 Est GFR (MDRD) Af Amer > 60 (>60) 06/07/19 05:50 Est GFR (MDRD) Non-Af > 60 (>60) 06/07/19 05:50 Glucose 435 mg/dL (65-99) H 06/07/19 05:50 POC Glucose (mg/dL) 393 mg/dL (65-99) H 06/07/19 11:19 Hemoglobin A1c 11.7 % 06/07/19 05:50 Calcium 10.3 mg/dL (8.5-10.1) H 06/07/19 05:50 Corrected Calcium TNP 06/07/19 05:50 Magnesium 1.6 mg/dL (1.7-2.9) L 06/07/19 00:20 Total Bilirubin 0.50 mg/dL (0.2-1.0) 06/07/19 05:50 AST 25 Units/L (15-37) 06/07/19 05:50 ALT 42 Units/L (12-78) 06/07/19 05:50 Alkaline Phosphatase 135 Units/L (46-116) H 06/07/19 05:50 Creatine Kinase 148 Units/L (26-192) 06/07/19 00:20 CK-MB (CK-2) 3.0 ng/mL (0-4.0) 06/07/19 00:20 CK/CKMB % Calc 2.0 % (<4) 06/07/19 00:20 Troponin I 0.02 ng/mL (0-1.5) 06/07/19 00:20 Total Protein 6.8 g/dL (6.4-8.2) 06/07/19 05:50 Albumin 3.7 g/dL (3.4-5.0) 06/07/19 05:50 Globulin 3.1 g/dL (2.5-4.5) 06/07/19 05:50 Albumin/Globulin Ratio 1.2 Ratio (1.1-2.1) 06/07/19 05:50 Amylase 85 Units/L (25-115) 06/07/19 00:20 Lipase 443 Units/L (73-393) H 06/07/19 00:20 TSH 3rd Generation 3.820 uIU/mL (0.358-3.74) H 06/07/19 05:50 HCG, Qual Negative <10 mIU/mL 06/07/19 00:20 Specimen Type Clean catch urine 06/07/19 02:50 Urine Color Pale yellow (YELLOW) 06/07/19 02:50 Urine Appearance Clear (CLEAR) 06/07/19 02:50 Urine pH 6.5 (5.0 - 8.0) 06/07/19 02:50 Ur Specific [place] 1.010 (1.000-1.030) 06/07/19 02:50 Urine Protein 3+ (NEGATIVE) 06/07/19 02:50 Urine Glucose (UA) 4+ (NEGATIVE) 06/07/19 02:50 Urine Ketones Negative (NEGATIVE) 06/07/19 02:50 Urine Occult Blood Negative (NEGATIVE) 06/07/19 02:50 Urine Nitrite Negative (NEGATIVE) 06/07/19 02:50 Urine Bilirubin Negative (NEGATIVE) 06/07/19 02:50 Urine Urobilinogen Normal (NORMAL) 06/07/19 02:50 Ur Leukocyte Esterase Negative (NEGATIVE) 06/07/19 02:50 Urine RBC None seen /HPF (0-3) 06/07/19 02:50 Urine WBC None seen /HPF (0-5) 06/07/19 02:50 Ur Squamous Epith Cells Rare /HPF (NEGATIVE) 06/07/19 02:50 Urine Bacteria Negative /HPF (NEGATIVE) 06/07/19 02:50 Ur Culture Indicated? No/not indicated 06/07/19 02:50 Urine Opiates Screen Negative (NEG=<300) 06/07/19 02:50 Urine Methadone Screen Negative (NEG=<300) 06/07/19 02:50 Ur Barbiturates Screen Negative (NEG=<200) 06/07/19 02:50 Ur Phencyclidine Scrn Negative (NEG=<25) 06/07/19 02:50 Ur Amphetamines Screen Negative (NEG=<1000) 06/07/19 02:50 U Benzodiazepines Scrn Negative (NEG=<200) 06/07/19 02:50 Urine Cocaine Screen Negative (NEG=<300) 06/07/19 02:50 U Marijuana (THC) Screen Negative (NEG=<50) 06/07/19 02:50 Review of Systems Constitutional: Weakness and Malaise; denies Fever Eyes: No Symptoms Reported ENT: No Symptoms Reported Respiratory: No Symptoms Reported Cardiovascular: No Symptoms Reported Gastrointestinal: Nausea, Vomiting, Abdominal Pain and Constipation Genitourinary: No Symptoms Reported Musculoskeletal: Shoulder Pain, Back Pain and Neck Pain Skin: Bruising (left knee) Physical Exam Vital Signs: Temperature 98.0 F Pulse Rate [Left Radial] 90 Pulse Rate 90 Respiratory Rate 19 Blood Pressure [Left Arm] 189/86 Blood Pressure [Right Arm] 122/78 Blood Pressure 190/94 O2 Sat by Pulse Oximetry 94 Oriented: Normal Eyes: Normal Respiratory: Clear Throughout Cardiovascular: Normal Auscultation: Bowel Sounds: Decreased Tenderness: Diffuse, RLQ, LLQ, Epigastric and Moderate Skin: Normal Musculoskeletal: Left and Knee (surgical scar noted, limited ROM, no redness noted ) Mood Description: Calm Affect: Anxious Speech Pattern: Clear and Appropriate Assessment/Plan (1) Hyperglycemia: Status: Acute Plan: patient presented with blood sugars in the 400s, reports being sick with N/V for few days. Poor oral intake, takes levemir 30 units BID and Humalog 45 units prn with meals. Will start levemir 30 units BID and continue SSI. (2) Gastroenteritis: Status: Acute Plan: CTAP negative for acute infection. Likely viral, supportive care with hydration, anti-emetics and pain control. Keep NPO until nausea and vomiting resolve. Phenergan prn with Benadryl, patient reports feeling itchy with anti-emetics KUB pending (3) Fall: Qualifiers: Encounter type: initial encounter Qualified Code(s): W19.XXXA - Unspecified fall, initial encounter Status: Acute Plan: Left knee pain, XR with no acute fracture, continue pain control (4) Uncontrolled type 2 diabetes mellitus: Qualifiers: Glycemic state: with hyperglycemia Qualified Code(s): E11.65 - Type 2 diabetes mellitus with hyperglycemia Status: Acute Plan: A1C: 11.7 Start levemir 30 units BID and SSI (5) Disc herniation: Qualifiers: Spinal region: unspecified cervical region Qualified Code(s): M50.20 - Other cervical disc displacement, unspecified cervical region Status: Acute Plan: chronic multilevel DDD, on Dilaudid PO 4 mg TID at home, unable to take PO due to intractable nausea and vomiting. Will switch to IV while NPO. (6) Left knee pain: Qualifiers: Chronicity: acute Qualified Code(s): M25.562 - Pain in left knee Status: Acute (7) Accelerated hypertension: Status: Acute Plan: received clonidine in ED, will start lisinopril 20 mg and adjust as needed (8) Hepatomegaly: Status: Acute Plan: As seen on CT (9) Hypercalcemia: Status: Acute Plan: improved with IVF and Lasix, 10.3. Follow labs in the AM. PTH and 24 hr Ca ordered. (10) History of embolism: Status: Acute Plan: Hx of DVT and PE, on eliquis Review H&P Reviewed: Yes Patient was examined?: Yes
[2019-06-07] MEDS ORDERED: COLACE SYRUP 100 MG UDC ONE (13:48)
[2019-06-07] MEDS ORDERED: ZESTRIL TAB 20 MG ONE (13:49)
[2019-06-07] MEDS ORDERED: LEVEMIR SC ONE (13:50)
[2019-06-07] MEDS: ZESTRIL TAB 20 MG PO SCH (14:00)
[2019-06-07] MEDS: LEVEMIR SC SCH ×2 (14:00→20:19)
[2019-06-07] MEDS: COLACE SYRUP 100 MG UDC PO SCH ×2 (14:01→20:16)
--- NOTE | 2019-06-07 17:18 | RAD ---
HISTORY: Rule out obstructionStudy: KUBComparison: NoneFindings:Evaluation of the abdomen demonstrates a normal bowel gas pattern. No pathological soft tissue mass or calcification can be observed. The bony structures are grossly intact.IMPRESSION: 1. No evidence for acute abdominal pathology identified.Reported By:
[2019-06-07] MEDS ORDERED: SNACK - Diabetic Appropriate PO SCH (20:00)
[2019-06-07] MEDS: SNACK - Diabetic Appropriate PO SCH (20:19)
[2019-06-08] MEDS: DILAUDID INJ IVP PRN ×2 (02:01→06:10)
[2019-06-08] MEDS: NS 1000 ML 1,000 ML IV SCH (02:59)
[2019-06-08 04:30] LABS: BASOPHILS # (AUTO) 0.3 X10^3/uL (0.0-0.1); BASOPHILS % (AUTO) 1.7 % (0.2-1.0); EOSINOPHILS # (AUTO) 0.3 x10^3/uL (0.0-0.2); EOSINOPHILS % (AUTO) 2.1 % (0.9-2.9); HEMATOCRIT 35.6 % (36.0-47.0); HEMOGLOBIN 11.5 g/dL (12.0-16.0); LYMPHOCYTES # (AUTO) 5.7 X10^3/uL (1.3-2.9); LYMPHOCYTES % (AUTO) 37.1 % (21.0-51.0); MEAN CORPUSCULAR HEMOGLOBIN 26.6 pg (27.0-34.0); MEAN CORPUSCULAR HGB CONC 32.3 g/dL (33.0-35.0); MEAN CORPUSCULAR VOLUME 82.1 fL (80.0-100.0); MEAN PLATELET VOLUME 8.2 fL (7.4-11.0); MONOCYTES # (AUTO) 0.8 x10^3/uL (0.3-0.8); MONOCYTES % (AUTO) 5.5 % (0.0-13.0); NEUTROPHILS # (AUTO) 8.2 x10^3/uL (2.2-4.8); NEUTROPHILS % (AUTO) 53.6 % (42.0-75.0); PLATELET COUNT 498 X10^3/uL (150.0-450.0); RED BLOOD COUNT 4.34 X10^6/uL (3.5-5.4); RED CELL DISTRIBUTION WIDTH 15.9 % (11.6-16.5); WHITE BLOOD COUNT 15.4 X10^3/uL (3.6-10.0)
[2019-06-08 04:39] LABS: ALANINE AMINOTRANSFERASE 42 Units/L (12-78); ALBUMIN 3.5 g/dL (3.4-5.0); ALKALINE PHOSPHATASE 135 Units/L (46-116); ASPARTATE AMINO TRANSFERASE 26 Units/L (15-37); BLOOD UREA NITROGEN 11 mg/dL (7-18); CALCIUM 9.8 mg/dL (8.5-10.1); CARBON DIOXIDE 29.7 mmol/L (21-32); CHLORIDE 100 mmol/L (98-107); COR NA(FOR HYPERGLY) 143 mmol/L (136-145); CREATININE 1.19 mg/dL (0.55-1.02); MAGNESIUM 1.7 mg/dL (1.7-2.9); SODIUM 134 mmol/L (136-145); TOTAL PROTEIN 6.6 g/dL (6.4-8.2); eGFR NON BLACK RACES 51 (>60)
[2019-06-08] MEDS: HumuLIN R SUBCUT PRN ×4 (06:15→22:19)
[2019-06-08] MEDS: NEURONTIN CAP 300 MG PO SCH (06:19)
[2019-06-08] MEDS ORDERED: NARCAN INJ ONE (08:12)
[2019-06-08] MEDS ORDERED: PHENERGAN INJ 25 MG IM PRN (08:30)
[2019-06-08] MEDS ORDERED: ZESTRIL TAB 20 MG ONE (08:34)
[2019-06-08] MEDS ORDERED: PHARMACY CONSULT - VANCOMYCIN XX SCH (09:00)
--- NOTE | 2019-06-08 09:13 | PCM.PROG ---
Progress Note Progress Note for Day of Date of Exam: 06/08/19 Subjective Subjective: Patient unable to be aroused during rounds, received Dilaudid and gabapentin around 6 am. Patient was not waking up with sternal rub, one dose of Narcan given and patient slowly started waking up. RN reported patient being up all night, ambulating in the hallways. She was also eating overnight. Dose of Levemir held at bedtime due to glucose being 162. This morning BG 455. Patient states she still feels nauseated even though she has been eating. She was asking to have Dialudid IV, phenergan and Benadryl at the same time but discussed this is not safe as all these medications can be sedating. If she still has nausea, Phenergan prn added. Will DC Benadryl and hold Dilaudid until patient is more awake and alert. One blood culture positive. KUB negative for obstruction. No BM yet. Physical exam limited as patient was not willing to cooperate. Advised patient to not take any of her home medications while she is in the hospital as she is getting the same here. Past Medical Family Social History Past Med/Fam/Surg Hx: No changes since H&P Allergies: Allergies acetaminophen [From Lorcet (hydrocodone)] Allergy (Verified 06/07/19 01:54) azithromycin [From Zithromax] Allergy (Verified 06/07/19 01:54) butorphanol [From Stadol] Allergy (Verified 06/07/19 01:54) codeine Allergy (Verified 06/07/19 01:54) hydralazine Allergy (Verified 06/07/19 01:54) hydrocodone Allergy (Verified 06/07/19 01:54) ibuprofen [From Motrin] Allergy (Verified 06/07/19 01:54) ketorolac [From Toradol] Allergy (Verified 06/07/19 01:54) levofloxacin [From Levaquin] Allergy (Verified 06/07/19 01:54) metoclopramide [From Reglan] Allergy (Verified 06/07/19 01:54) morphine Allergy (Verified 06/07/19 01:54) nalbuphine [From Nubain] Allergy (Verified 06/07/19 01:54) ondansetron [From Zofran] Allergy (Verified 06/07/19 01:54) oxycodone Allergy (Verified 06/07/19 01:54) propoxyphene [From Darvocet-N] Allergy (Verified 06/07/19 01:54) tramadol [From Ultram] Allergy (Verified 06/07/19 01:54) Review of Systems ROS: No change since H&P Vital Signs and I&O's Vital Signs: Temperature 97.7 F Pulse Rate [Left Radial] 122 Pulse Rate 90 Respiratory Rate 20 Blood Pressure [Left Arm] 122/51 Blood Pressure [Right Arm] 122/78 Blood Pressure 190/94 O2 Sat by Pulse Oximetry 92 Intake and Output: Intake & Output 06/05/19 06/06/19 06/07/19 06/08/19 23:59 23:59 23:59 23:59 Intake Total 3675 / 3675 480 / 480 Output Total 3700 / 3700 1650 / 1650 Balance -25 / -25 -1170 / -1170 Physical Exam Oriented: Unable to test Eyes: Normal Respiratory: Normal Cardiovascular: Tachycardia Auscultation: Bowel Sounds: Decreased Tenderness: Normal Skin: Normal Musculoskeletal: Left and Knee (surgical scar noted, limited ROM, no redness noted ) Psychiatric: Agitation Mood Description: Angry Speech Pattern: Unclear and Delayed Laboratory and Diagnostics Result Diagrams: 06/08/19 04:12 06/08/19 04:12 Labs: Laboratory WBC 15.4 X10^3/uL (3.6-10.0) H 06/08/19 04:12 RBC 4.34 X10^6/uL (3.5-5.4) 06/08/19 04:12 Hgb 11.5 g/dL (12.0-16.0) L 06/08/19 04:12 Hct 35.6 % (36.0-47.0) L 06/08/19 04:12 MCV 82.1 fL (80.0-100.0) 06/08/19 04:12 MCH 26.6 pg (27.0-34.0) L 06/08/19 04:12 MCHC 32.3 g/dL (33.0-35.0) L 06/08/19 04:12 RDW 15.9 % (11.6-16.5) 06/08/19 04:12 Plt Count 498 X10^3/uL (150.0-450.0) H 06/08/19 04:12 MPV 8.2 fL (7.4-11.0) 06/08/19 04:12 Neut % (Auto) 53.6 % (42.0-75.0) 06/08/19 04:12 Lymph % (Auto) 37.1 % (21.0-51.0) 06/08/19 04:12 [place] % (Auto) 5.5 % (0.0-13.0) 06/08/19 04:12 Eos % (Auto) 2.1 % (0.9-2.9) 06/08/19 04:12 Baso % (Auto) 1.7 % (0.2-1.0) H 06/08/19 04:12 Neut # (Auto) 8.2 x10^3/uL (2.2-4.8) H 06/08/19 04:12 Lymph # (Auto) 5.7 X10^3/uL (1.3-2.9) H 06/08/19 04:12 [place] # (Auto) 0.8 x10^3/uL (0.3-0.8) 06/08/19 04:12 Eos # (Auto) 0.3 x10^3/uL (0.0-0.2) H 06/08/19 04:12 Baso # (Auto) 0.3 X10^3/uL (0.0-0.1) H 06/08/19 04:12 Absolute Nucleated RBC 0.2 /100WBC 06/08/19 04:12 PT 13.0 SECONDS (11.8-14.3) 06/07/19 00:20 INR Target Range - 06/07/19 00:20 INR 1.02 (0.8-1.3) 06/07/19 00:20 APTT 28.6 SECONDS (22.9-36.5) 06/07/19 00:20 PTT Comment - 06/07/19 00:20 Sodium 134 mmol/L (136-145) L 06/08/19 04:12 Corrected Sodium 143 mmol/L (136-145) 06/08/19 04:12 Potassium 4.8 mmol/L (3.5-5.1) 06/08/19 04:12 Chloride 100 mmol/L (98-107) 06/08/19 04:12 Carbon Dioxide 29.7 mmol/L (21-32) 06/08/19 04:12 BUN 11 mg/dL (7-18) 06/08/19 04:12 Creatinine 1.19 mg/dL (0.55-1.02) H 06/08/19 04:12 Est GFR (MDRD) Af Amer > 60 (>60) 06/08/19 04:12 Est GFR (MDRD) Non-Af 51 (>60) L 06/08/19 04:12 Glucose 455 mg/dL (65-99) H 06/08/19 04:12 POC Glucose (mg/dL) 443 mg/dL (65-99) H 06/08/19 04:11 Hemoglobin A1c 11.7 % 06/07/19 05:50 Calcium 9.8 mg/dL (8.5-10.1) 06/08/19 04:12 Corrected Calcium TNP 06/08/19 04:12 Magnesium 1.7 mg/dL (1.7-2.9) 06/08/19 04:12 Total Bilirubin 0.40 mg/dL (0.2-1.0) 06/08/19 04:12 AST 26 Units/L (15-37) 06/08/19 04:12 ALT 42 Units/L (12-78) 06/08/19 04:12 Alkaline Phosphatase 135 Units/L (46-116) H 06/08/19 04:12 Creatine Kinase 148 Units/L (26-192) 06/07/19 00:20 CK-MB (CK-2) 3.0 ng/mL (0-4.0) 06/07/19 00:20 CK/CKMB % Calc 2.0 % (<4) 06/07/19 00:20 Troponin I 0.02 ng/mL (0-1.5) 06/07/19 00:20 Total Protein 6.6 g/dL (6.4-8.2) 06/08/19 04:12 Albumin 3.5 g/dL (3.4-5.0) 06/08/19 04:12 Globulin 3.1 g/dL (2.5-4.5) 06/08/19 04:12 Albumin/Globulin Ratio 1.1 Ratio (1.1-2.1) 06/08/19 04:12 Amylase 85 Units/L (25-115) 06/07/19 00:20 Lipase 443 Units/L (73-393) H 06/07/19 00:20 TSH 3rd Generation 3.820 uIU/mL (0.358-3.74) H 06/07/19 05:50 HCG, Qual Negative <10 mIU/mL 06/07/19 00:20 Specimen Type Clean catch urine 06/07/19 02:50 Urine Color Pale yellow (YELLOW) 06/07/19 02:50 Urine Appearance Clear (CLEAR) 06/07/19 02:50 Urine pH 6.5 (5.0 - 8.0) 06/07/19 02:50 Ur Specific [place] 1.010 (1.000-1.030) 06/07/19 02:50 Urine Protein 3+ (NEGATIVE) 06/07/19 02:50 Urine Glucose (UA) 4+ (NEGATIVE) 06/07/19 02:50 Urine Ketones Negative (NEGATIVE) 06/07/19 02:50 Urine Occult Blood Negative (NEGATIVE) 06/07/19 02:50 Urine Nitrite Negative (NEGATIVE) 06/07/19 02:50 Urine Bilirubin Negative (NEGATIVE) 06/07/19 02:50 Urine Urobilinogen Normal (NORMAL) 06/07/19 02:50 Ur Leukocyte Esterase Negative (NEGATIVE) 06/07/19 02:50 Urine RBC None seen /HPF (0-3) 06/07/19 02:50 Urine WBC None seen /HPF (0-5) 06/07/19 02:50 Ur Squamous Epith Cells Rare /HPF (NEGATIVE) 06/07/19 02:50 Urine Bacteria Negative /HPF (NEGATIVE) 06/07/19 02:50 Ur Culture Indicated? No/not indicated 06/07/19 02:50 Ur Random Calcium 7.8 mg/dl (2-17.5) 06/08/19 06:25 Ur 24 Hour Volume 4250 ml/24 hr (600-1600) H 06/08/19 06:25 Ur Calcium 24 Hr 332 mg/24 hr (42-353) 06/08/19 06:25 Urine Opiates Screen Negative (NEG=<300) 06/07/19 02:50 Urine Methadone Screen Negative (NEG=<300) 06/07/19 02:50 Ur Barbiturates Screen Negative (NEG=<200) 06/07/19 02:50 Ur Phencyclidine Scrn Negative (NEG=<25) 06/07/19 02:50 Ur Amphetamines Screen Negative (NEG=<1000) 06/07/19 02:50 U Benzodiazepines Scrn Negative (NEG=<200) 06/07/19 02:50 Urine Cocaine Screen Negative (NEG=<300) 06/07/19 02:50 U Marijuana (THC) Screen Negative (NEG=<50) 06/07/19 02:50 Plan (1) Hyperglycemia: Status: Acute Plan: continue Levemir 20 units BID, SSI. Missed yesterday evening dose of Levemir. (2) Gastroenteritis: Status: Acute Plan: CTAP negative for acute infection. Likely viral, patient received IV fluids, phenergan. KUB negative for obstruction, she has been tolerating diet and no further episodes of vomiting. (3) Fall: Status: Acute Qualifiers: Encounter type: initial encounter Qualified Code(s): W19.XXXA - Unspecified fall, initial encounter Plan: Left knee pain, XR with no acute fracture, continue pain control (4) Uncontrolled type 2 diabetes mellitus: Status: Acute Qualifiers: Glycemic state: with hyperglycemia Qualified Code(s): E11.65 - Type 2 diabetes mellitus with hyperglycemia Plan: A1C: 11.7 Contiue Levemir 20 units BID and SSI (5) Disc herniation: Status: Acute Qualifiers: Spinal region: unspecified cervical region Qualified Code(s): M50.20 - Other cervical disc displacement, unspecified cervical region Plan: chronic multilevel DDD, on Dilaudid PO 4 mg TID at home, was initially started on IV Dilaudid as she was not able to keep anything down. Eating fine now but very drowsy this AM requiring Narcan. Will hold narcotics and sedating medications for now. (6) Left knee pain: Status: Acute Qualifiers: Chronicity: acute Qualified Code(s): M25.562 - Pain in left knee (7) Accelerated hypertension: Status: Acute Plan: received clonidine in ED, continue lisinopril 20 mg and adjust as needed (8) Hepatomegaly: Status: Acute Plan: As seen on CT (9) Hypercalcemia: Status: Acute Plan: Ca: 9.8, normal 24hr urine calcium, PTH pending (10) History of embolism: Status: Acute Plan: Hx of DVT and PE, on eliquis (11) Constipation: Status: Acute Qualifiers: Constipation type: unspecified constipation type Qualified Code(s): K59.00 - Constipation, unspecified Plan: continue miralax and Colace.
[2019-06-08] MEDS: LEVEMIR SC SCH ×2 (09:48→22:16)
[2019-06-08] MEDS: COLACE SYRUP 100 MG UDC PO SCH (10:41)
[2019-06-08] MEDS: MIRALAX POWDER (1 DOSE 17 G) PO SCH (10:41)
[2019-06-08] MEDS: ASPIRIN EC 81 MG PO SCH (10:41)
[2019-06-08] MEDS: ZESTRIL TAB 20 MG PO SCH (10:41)
[2019-06-08] MEDS: ELIQUIS PO SCH (10:42)
[2019-06-08] MEDS: LIPITOR TAB 20 MG PO SCH (10:42)
[2019-06-08] MEDS: ZOSYN VIAL 3.375 GRAMS 3.375 G in NS 100 ML IV + SPIKE MINIBAG* 100 ML IV SCH ×4 (11:18→22:19)
[2019-06-08] MEDS: VANCOMYCIN HCL 1 G in NS 250 ML IV 250 ML IV SCH ×2 (11:18→21:15)
[2019-06-08] MEDS ORDERED: NEURONTIN CAP 300 MG PO SCH (14:00)
[2019-06-08] MEDS: NEURONTIN CAP 100 MG PO SCH ×2 (14:34→22:19)
[2019-06-08] MEDS: SNACK - Diabetic Appropriate PO SCH (20:10)
[2019-06-09] MEDS: ZOSYN VIAL 3.375 GRAMS 3.375 G in NS 100 ML IV + SPIKE MINIBAG* 100 ML IV SCH ×3 (05:33→23:21)
[2019-06-09 05:54] LABS: BASOPHILS # (AUTO) 0.1 X10^3/uL (0.0-0.1); BASOPHILS % (AUTO) 0.9 % (0.2-1.0); EOSINOPHILS # (AUTO) 0.4 x10^3/uL (0.0-0.2); EOSINOPHILS % (AUTO) 2.2 % (0.9-2.9); HEMATOCRIT 33.8 % (36.0-47.0); LYMPHOCYTES % (AUTO) 31.7 % (21.0-51.0); MEAN CORPUSCULAR HEMOGLOBIN 26.7 pg (27.0-34.0); MEAN CORPUSCULAR HGB CONC 32.6 g/dL (33.0-35.0); MONOCYTES # (AUTO) 0.8 x10^3/uL (0.3-0.8); MONOCYTES % (AUTO) 5.2 % (0.0-13.0); NEUTROPHILS # (AUTO) 9.5 x10^3/uL (2.2-4.8); PLATELET COUNT 506 X10^3/uL (150.0-450.0); RED BLOOD COUNT 4.12 X10^6/uL (3.5-5.4); RED CELL DISTRIBUTION WIDTH 15.8 % (11.6-16.5); WHITE BLOOD COUNT 15.8 X10^3/uL (3.6-10.0)
[2019-06-09] MEDS: NEURONTIN CAP 100 MG PO SCH (06:05)
[2019-06-09 06:12] LABS: ALANINE AMINOTRANSFERASE 36 Units/L (12-78); ALBUMIN 3.2 g/dL (3.4-5.0); ALKALINE PHOSPHATASE 116 Units/L (46-116); ASPARTATE AMINO TRANSFERASE 22 Units/L (15-37); BLOOD UREA NITROGEN 9 mg/dL (7-18); CALCIUM 10.2 mg/dL (8.5-10.1); CARBON DIOXIDE 29.6 mmol/L (21-32); CHLORIDE 104 mmol/L (98-107); COR CA(FOR HYPOALB) 10.8 mg/dL (8.5-10.1); COR NA(FOR HYPERGLY) 146 mmol/L (136-145); SODIUM 140 mmol/L (136-145); TOTAL PROTEIN 6.4 g/dL (6.4-8.2); eGFR NON BLACK RACES 56 (>60)
[2019-06-09] MEDS: HumuLIN R SUBCUT PRN ×4 (06:15→22:40)
[2019-06-09] MEDS ORDERED: POTASSIUM CHLORIDE LIQ 20 MEQ UDC PO PRN (07:46)
[2019-06-09] MEDS ORDERED: MICRO K EXTEN CAP 10 MEQ PO PRN (07:46)
[2019-06-09] MEDS ORDERED: KLOR-CON PO PRN (07:46)
[2019-06-09] MEDS ORDERED: K-RIDER 10 MEQ/NS 100 ML 10 MEQ/100 ML BAG IV PRN (07:46)
[2019-06-09] MEDS ORDERED: POTASSIUM CHL 60 MEQ/NS 0.45% 500 ML IV PRN (07:46)
[2019-06-09] MEDS ORDERED: K-DUR TAB 20 MEQ PO PRN (07:46)
[2019-06-09] MEDS ORDERED: POTASSIUM CHL 40 MEQ/NS 0.45% 500 ML IV PRN (07:46)
[2019-06-09] MEDS ORDERED: ZESTRIL TAB 20 MG ONE (08:09)
[2019-06-09] MEDS ORDERED: ZANAFLEX PO PRN (08:21)
--- NOTE | 2019-06-09 08:31 | PCM.PROG ---
Progress Note Progress Note for Day of Date of Exam: 06/09/19 Subjective Subjective: Patient sleeping during rounds, woke up and was angry about not having her pain medications yesterday. All narcotics and sedatives were held as patient was very drowsy for more than half day yesterday, requiring one dose of narcan to arouse. She states both her hands are swollen and her arms hurt. She has not had any more nausea or vomiting, eating ok. Patient would like to have her Dialudid and gabapentin resumed but she was told that if she becomes sleepy again and hard to arouse than they will be stopped again. One blood culture positive, currently on Vanc and Zosyn. Patient does have a chemo port for access, not using it for chemo now but just IV access. There is no other source of bacteremia. Patient denies any pain at the port site, no signs of infection. Past Medical Family Social History Past Med/Fam/Surg Hx: No changes since H&P Allergies: Allergies acetaminophen [From Lorcet (hydrocodone)] Allergy (Verified 06/07/19 01:54) azithromycin [From Zithromax] Allergy (Verified 06/07/19 01:54) butorphanol [From Stadol] Allergy (Verified 06/07/19 01:54) codeine Allergy (Verified 06/07/19 01:54) hydralazine Allergy (Verified 06/07/19 01:54) hydrocodone Allergy (Verified 06/07/19 01:54) ibuprofen [From Motrin] Allergy (Verified 06/07/19 01:54) ketorolac [From Toradol] Allergy (Verified 06/07/19 01:54) levofloxacin [From Levaquin] Allergy (Verified 06/07/19 01:54) metoclopramide [From Reglan] Allergy (Verified 06/07/19 01:54) morphine Allergy (Verified 06/07/19 01:54) nalbuphine [From Nubain] Allergy (Verified 06/07/19 01:54) ondansetron [From Zofran] Allergy (Verified 06/07/19 01:54) oxycodone Allergy (Verified 06/07/19 01:54) propoxyphene [From Darvocet-N] Allergy (Verified 06/07/19 01:54) tramadol [From Ultram] Allergy (Verified 06/07/19 01:54) Review of Systems ROS: No change since H&P Vital Signs and I&O's Vital Signs: Temperature 98.0 F Pulse Rate [Left Radial] 109 Pulse Rate 90 Respiratory Rate 16 Blood Pressure [Left Arm] 140/79 Blood Pressure [Right Arm] 122/78 Blood Pressure 190/94 O2 Sat by Pulse Oximetry 96 Intake and Output: Intake & Output 06/06/19 06/07/19 06/08/19 06/09/19 23:59 23:59 23:59 23:59 Intake Total 3675 / 3675 3595 / 3595 240 / 240 Output Total 3700 / 3700 3200 / 3200 Balance -25 / -25 395 / 395 240 / 240 Physical Exam Oriented: Normal Eyes: Normal Respiratory: Normal Cardiovascular: Tachycardia and Edema (b/l hands, tender and swollen ) Auscultation: Bowel Sounds: Normal Tenderness: Normal Skin: Normal and Other (right sided port noted, non-tender, no signs of infecti on ) Musculoskeletal: Left and Knee (surgical scar noted, limited ROM, no redness noted ) Psychiatric: Agitation Mood Description: Angry Affect: Angry Speech Pattern: Clear and Appropriate Laboratory and Diagnostics Result Diagrams: 06/09/19 04:27 06/09/19 04:27 Labs: Laboratory WBC 15.8 X10^3/uL (3.6-10.0) H 06/09/19 04:27 RBC 4.12 X10^6/uL (3.5-5.4) 06/09/19 04:27 Hgb 11.0 g/dL (12.0-16.0) L 06/09/19 04:27 Hct 33.8 % (36.0-47.0) L 06/09/19 04:27 MCV 82.0 fL (80.0-100.0) 06/09/19 04:27 MCH 26.7 pg (27.0-34.0) L 06/09/19 04:27 MCHC 32.6 g/dL (33.0-35.0) L 06/09/19 04:27 RDW 15.8 % (11.6-16.5) 06/09/19 04:27 Plt Count 506 X10^3/uL (150.0-450.0) H 06/09/19 04:27 MPV 9.0 fL (7.4-11.0) 06/09/19 04:27 Neut % (Auto) 60.0 % (42.0-75.0) 06/09/19 04:27 Lymph % (Auto) 31.7 % (21.0-51.0) 06/09/19 04:27 [place] % (Auto) 5.2 % (0.0-13.0) 06/09/19 04:27 Eos % (Auto) 2.2 % (0.9-2.9) 06/09/19 04:27 Baso % (Auto) 0.9 % (0.2-1.0) 06/09/19 04:27 Neut # (Auto) 9.5 x10^3/uL (2.2-4.8) H 06/09/19 04:27 Lymph # (Auto) 5.0 X10^3/uL (1.3-2.9) H 06/09/19 04:27 [place] # (Auto) 0.8 x10^3/uL (0.3-0.8) 06/09/19 04:27 Eos # (Auto) 0.4 x10^3/uL (0.0-0.2) H 06/09/19 04:27 Baso # (Auto) 0.1 X10^3/uL (0.0-0.1) 06/09/19 04:27 Absolute Nucleated RBC 0.2 /100WBC 06/09/19 04:27 PT 13.0 SECONDS (11.8-14.3) 06/07/19 00:20 INR Target Range - 06/07/19 00:20 INR 1.02 (0.8-1.3) 06/07/19 00:20 APTT 28.6 SECONDS (22.9-36.5) 06/07/19 00:20 PTT Comment - 06/07/19 00:20 Sodium 140 mmol/L (136-145) 06/09/19 04:27 Corrected Sodium 146 mmol/L (136-145) H 06/09/19 04:27 Potassium 4.1 mmol/L (3.5-5.1) 06/09/19 04:27 Chloride 104 mmol/L (98-107) 06/09/19 04:27 Carbon Dioxide 29.6 mmol/L (21-32) 06/09/19 04:27 BUN 9 mg/dL (7-18) 06/09/19 04:27 Creatinine 1.10 mg/dL (0.55-1.02) H 06/09/19 04:27 Est GFR (MDRD) Af Amer > 60 (>60) 06/09/19 04:27 Est GFR (MDRD) Non-Af 56 (>60) L 06/09/19 04:27 Glucose 342 mg/dL (65-99) H 06/09/19 04:27 POC Glucose (mg/dL) 320 mg/dL (65-99) H 06/09/19 05:58 Hemoglobin A1c 11.7 % 06/07/19 05:50 Calcium 10.2 mg/dL (8.5-10.1) H 06/09/19 04:27 Corrected Calcium 10.8 mg/dL (8.5-10.1) H 06/09/19 04:27 Magnesium 1.7 mg/dL (1.7-2.9) 06/08/19 04:12 Total Bilirubin 0.60 mg/dL (0.2-1.0) 06/09/19 04:27 AST 22 Units/L (15-37) 06/09/19 04:27 ALT 36 Units/L (12-78) 06/09/19 04:27 Alkaline Phosphatase 116 Units/L (46-116) 06/09/19 04:27 Creatine Kinase 148 Units/L (26-192) 06/07/19 00:20 CK-MB (CK-2) 3.0 ng/mL (0-4.0) 06/07/19 00:20 CK/CKMB % Calc 2.0 % (<4) 06/07/19 00:20 Troponin I 0.02 ng/mL (0-1.5) 06/07/19 00:20 Total Protein 6.4 g/dL (6.4-8.2) 06/09/19 04:27 Albumin 3.2 g/dL (3.4-5.0) L 06/09/19 04:27 Globulin 3.2 g/dL (2.5-4.5) 06/09/19 04:27 Albumin/Globulin Ratio 1.0 Ratio (1.1-2.1) L 06/09/19 04:27 Amylase 85 Units/L (25-115) 06/07/19 00:20 Lipase 443 Units/L (73-393) H 06/07/19 00:20 TSH 3rd Generation 3.820 uIU/mL (0.358-3.74) H 06/07/19 05:50 HCG, Qual Negative <10 mIU/mL 06/07/19 00:20 Specimen Type Clean catch urine 06/07/19 02:50 Urine Color Pale yellow (YELLOW) 06/07/19 02:50 Urine Appearance Clear (CLEAR) 06/07/19 02:50 Urine pH 6.5 (5.0 - 8.0) 06/07/19 02:50 Ur Specific [place] 1.010 (1.000-1.030) 06/07/19 02:50 Urine Protein 3+ (NEGATIVE) 06/07/19 02:50 Urine Glucose (UA) 4+ (NEGATIVE) 06/07/19 02:50 Urine Ketones Negative (NEGATIVE) 06/07/19 02:50 Urine Occult Blood Negative (NEGATIVE) 06/07/19 02:50 Urine Nitrite Negative (NEGATIVE) 06/07/19 02:50 Urine Bilirubin Negative (NEGATIVE) 06/07/19 02:50 Urine Urobilinogen Normal (NORMAL) 06/07/19 02:50 Ur Leukocyte Esterase Negative (NEGATIVE) 06/07/19 02:50 Urine RBC None seen /HPF (0-3) 06/07/19 02:50 Urine WBC None seen /HPF (0-5) 06/07/19 02:50 Ur Squamous Epith Cells Rare /HPF (NEGATIVE) 06/07/19 02:50 Urine Bacteria Negative /HPF (NEGATIVE) 06/07/19 02:50 Ur Culture Indicated? No/not indicated 06/07/19 02:50 Ur Random Calcium 7.8 mg/dl (2-17.5) 06/08/19 06:25 Ur 24 Hour Volume 4250 ml/24 hr (600-1600) H 06/08/19 06:25 Ur Calcium 24 Hr 332 mg/24 hr (42-353) 06/08/19 06:25 Urine Opiates Screen Negative (NEG=<300) 06/08/19 12:32 Urine Methadone Screen Negative (NEG=<300) 06/08/19 12:32 Ur Barbiturates Screen Negative (NEG=<200) 06/08/19 12:32 Ur Phencyclidine Scrn Negative (NEG=<25) 06/08/19 12:32 Ur Amphetamines Screen Negative (NEG=<1000) 06/08/19 12:32 U Benzodiazepines Scrn Negative (NEG=<200) 06/08/19 12:32 Urine Cocaine Screen Negative (NEG=<300) 06/08/19 12:32 U Marijuana (THC) Screen Negative (NEG=<50) 06/08/19 12:32 Plan (1) Bacteremia: Status: Acute Plan: one blood culture positive, awaiting identification, repeat cultures pending continue vancomycin and zosyn patient has a chemo port which is likely the source of infection, CTAP negative. (2) Hyperglycemia: Status: Acute Plan: increase Levemir 30 units BID, SSI. (3) Gastroenteritis: Status: Acute Plan: CTAP negative for acute infection. KUB negative for obstruction, she has been tolerating diet and no further episodes of vomiting. Resolved (4) Fall: Status: Acute Qualifiers: Encounter type: initial encounter Qualified Code(s): W19.XXXA - Unspecified fall, initial encounter Plan: Left knee pain, XR with no acute fracture, continue pain control (5) Uncontrolled type 2 diabetes mellitus: Status: Acute Qualifiers: Glycemic state: with hyperglycemia Qualified Code(s): E11.65 - Type 2 diabetes mellitus with hyperglycemia Plan: A1C: 11.7 Increase Levemir 30 units BID and SSI (6) Disc herniation: Status: Acute Qualifiers: Spinal region: unspecified cervical region Qualified Code(s): M50.20 - Other cervical disc displacement, unspecified cervical region Plan: chronic multilevel DDD, on Dilaudid PO 4 mg TID at home, was initially started on IV Dilaudid as she was not able to keep anything down. Was not able to be aroused yesterday, one dose of Narcan given. Patient awake this AM, discussed the side effects of narcotics causing sedation. Will resume home dose of Dilaudid with careful monitoring, gabapentin 800 mg qHS and start tizanidine 4 mg BID prn for muscle spasms. (7) Left knee pain: Status: Acute Qualifiers: Chronicity: acute Qualified Code(s): M25.562 - Pain in left knee (8) Accelerated hypertension: Status: Acute Plan: continue lisinopril 20 mg and adjust as needed (9) Hepatomegaly: Status: Acute Plan: As seen on CT (10) Hypercalcemia: Status: Acute Plan: Ca: 10.2, normal 24hr urine calcium (11) History of embolism: Status: Acute Plan: Hx of DVT and PE, on eliquis (12) Constipation: Status: Acute Qualifiers: Constipation type: unspecified constipation type Qualified Code(s): K5 9.00 - Constipation, unspecified Plan: continue miralax and Colace. (13) Edema of upper extremity: Status: Acute Plan: swollen hands, tender forearms, will get U/S bilaterally to rule out DVT.
[2019-06-09] MEDS ORDERED: LEVEMIR SC SCH (09:00)
[2019-06-09] MEDS ORDERED: DILAUDID ONE ×2 (10:19→17:56)
[2019-06-09] MEDS: ELIQUIS PO SCH (10:29)
[2019-06-09] MEDS: DILAUDID PO PRN ×2 (10:29→17:59)
[2019-06-09] MEDS: ASPIRIN EC 81 MG PO SCH (10:29)
[2019-06-09] MEDS: ZESTRIL TAB 20 MG PO SCH (10:29)
[2019-06-09] MEDS: LEVEMIR SC SCH ×2 (10:43→22:37)
[2019-06-09] MEDS: MIRALAX POWDER (1 DOSE 17 G) PO SCH (10:44)
[2019-06-09] MEDS: VANCOMYCIN HCL 1 G in NS 250 ML IV 250 ML IV SCH (10:44)
[2019-06-09] MEDS: SNACK - Diabetic Appropriate PO SCH (20:00)
[2019-06-09] MEDS ORDERED: PHARMACY COMMENT IV NR (20:30)
[2019-06-09] MEDS ORDERED: NEURONTIN CAP 400 MG PO SCH (21:00)
[2019-06-09 21:31] LABS: CREATININE 1.26 mg/dL (0.55-1.02); VANCOMYCIN,TROUGH 7.4 ug/mL (15-20)
[2019-06-09] MEDS ORDERED: D5W 250 ML IV 250 ML IV ONE (22:14)
[2019-06-09] MEDS ORDERED: VANCOMYCIN HCL ONE ×2 (22:14)
[2019-06-09] MEDS ORDERED: MILK OF MAGNESIA ONE (22:54)
[2019-06-09] MEDS: VANCOMYCIN HCL 500 MG, VANCOMYCIN HCL 1 G in D5W 250 ML IV 250 ML IV SCH (23:20)
[2019-06-10] MEDS ORDERED: MILK OF MAGNESIA PO PRN (02:05)
[2019-06-10] MEDS: ZOSYN VIAL 3.375 GRAMS 3.375 G in NS 100 ML IV + SPIKE MINIBAG* 100 ML IV SCH (05:19)
[2019-06-10] MEDS ORDERED: ZESTRIL TAB 20 MG ONE (08:17)
[2019-06-10 08:48] LABS: BASOPHILS # (AUTO) 0.2 X10^3/uL (0.0-0.1); BASOPHILS % (AUTO) 1.5 % (0.2-1.0); EOSINOPHILS # (AUTO) 0.5 x10^3/uL (0.0-0.2); HEMATOCRIT 36.6 % (36.0-47.0); LYMPHOCYTES # (AUTO) 5.6 X10^3/uL (1.3-2.9); LYMPHOCYTES % (AUTO) 42.6 % (21.0-51.0); MEAN CORPUSCULAR HEMOGLOBIN 26.8 pg (27.0-34.0); MEAN CORPUSCULAR HGB CONC 32.9 g/dL (33.0-35.0); MEAN CORPUSCULAR VOLUME 81.4 fL (80.0-100.0); MEAN PLATELET VOLUME 8.2 fL (7.4-11.0); MONOCYTES # (AUTO) 0.7 x10^3/uL (0.3-0.8); MONOCYTES % (AUTO) 5.3 % (0.0-13.0); NEUTROPHILS # (AUTO) 6.1 x10^3/uL (2.2-4.8); NEUTROPHILS % (AUTO) 46.6 % (42.0-75.0); PLATELET COUNT 543 X10^3/uL (150.0-450.0); RED BLOOD COUNT 4.49 X10^6/uL (3.5-5.4); RED CELL DISTRIBUTION WIDTH 16.3 % (11.6-16.5); WHITE BLOOD COUNT 13.1 X10^3/uL (3.6-10.0)
[2019-06-10 08:51] LABS: ALANINE AMINOTRANSFERASE 37 Units/L (12-78); ALBUMIN 3.6 g/dL (3.4-5.0); ALKALINE PHOSPHATASE 134 Units/L (46-116); ASPARTATE AMINO TRANSFERASE 23 Units/L (15-37); BLOOD UREA NITROGEN 11 mg/dL (7-18); CALCIUM 10.8 mg/dL (8.5-10.1); CARBON DIOXIDE 27.9 mmol/L (21-32); CHLORIDE 100 mmol/L (98-107); COR NA(FOR HYPERGLY) 142 mmol/L (136-145); CREATININE 1.11 mg/dL (0.55-1.02); SODIUM 135 mmol/L (136-145); TOTAL PROTEIN 7.1 g/dL (6.4-8.2); eGFR NON BLACK RACES 55 (>60)
[2019-06-10] MEDS: ZESTRIL TAB 20 MG PO SCH (08:53)
[2019-06-10] MEDS: LEVEMIR SC SCH (08:53)
[2019-06-10] MEDS: ASPIRIN EC 81 MG PO SCH (08:53)
[2019-06-10] MEDS: ELIQUIS PO SCH (08:53)
[2019-06-10] MEDS: MIRALAX POWDER (1 DOSE 17 G) PO SCH ×2 (08:54→08:57)
[2019-06-10] MEDS: VANCOMYCIN HCL 500 MG, VANCOMYCIN HCL 1 G in D5W 250 ML IV 250 ML IV SCH (09:03)
--- NOTE | 2019-06-10 09:43 | PCM.PROG ---
Progress Note Progress Note for Day of Date of Exam: 06/10/19 Subjective Subjective: Patient seen at bedside. She refused evening doses of vanc and Rocephin last night and refused labs this AM. Cultures from admission 06/07, one drawn peripherally and second from port positive for Gram positive cocci. Patient not able to understand that the port needs to be removed. She states she has a hx of staph infection before and that her port was infected then but did not have to be removed. It was explained to her that the culture drawn from the port is also positive. ECHO pending to rule out endocarditis. Will consult Dr. Izaguirre to see if port can be removed. Patient states this port has been there for over 2 years, used for access now. She states she has very bad veins and port is the only way she has been able to get medications during her prev hospitalizations. Past Medical Family Social History Past Med/Fam/Surg Hx: No changes since H&P Allergies: Allergies acetaminophen [From Lorcet (hydrocodone)] Allergy (Verified 06/07/19 01:54) azithromycin [From Zithromax] Allergy (Verified 06/07/19 01:54) butorphanol [From Stadol] Allergy (Verified 06/07/19 01:54) codeine Allergy (Verified 06/07/19 01:54) hydralazine Allergy (Verified 06/07/19 01:54) hydrocodone Allergy (Verified 06/07/19 01:54) ibuprofen [From Motrin] Allergy (Verified 06/07/19 01:54) ketorolac [From Toradol] Allergy (Verified 06/07/19 01:54) levofloxacin [From Levaquin] Allergy (Verified 06/07/19 01:54) metoclopramide [From Reglan] Allergy (Verified 06/07/19 01:54) morphine Allergy (Verified 06/07/19 01:54) nalbuphine [From Nubain] Allergy (Verified 06/07/19 01:54) ondansetron [From Zofran] Allergy (Verified 06/07/19 01:54) oxycodone Allergy (Verified 06/07/19 01:54) propoxyphene [From Darvocet-N] Allergy (Verified 06/07/19 01:54) tramadol [From Ultram] Allergy (Verified 06/07/19 01:54) Review of Systems ROS: No change since H&P Vital Signs and I&O's Vital Signs: Temperature 97.9 F Pulse Rate [Left Radial] 87 Pulse Rate 90 Respiratory Rate 14 Blood Pressure [Left Arm] 141/73 Blood Pressure [Right Arm] 122/78 Blood Pressure 190/94 O2 Sat by Pulse Oximetry 97 Intake and Output: Intake & Output 06/07/19 06/08/19 06/09/19 06/10/19 23:59 23:59 23:59 23:59 Intake Total 3675 / 3675 3595 / 3595 2470 / 2470 240 / 240 Output Total 3700 / 3700 3200 / 3200 625 / 625 Balance -25 / -25 395 / 395 2470 / 2470 -385 / -385 Physical Exam Oriented: Normal Eyes: Normal Respiratory: Normal Cardiovascular: Normal and Edema (b/l hands swelling reduced ) Auscultation: Bowel Sounds: Normal Tenderness: Normal Skin: Normal and Other (right sided port noted, non-tender, no signs of infection ) Musculoskeletal: Left and Knee (surgical scar noted, limited ROM, no redness noted ) Psychiatric: Agitation Mood Description: Angry Affect: Angry Speech Pattern: Clear and Appropriate Laboratory and Diagnostics Result Diagrams: 06/10/19 08:30 06/10/19 08:30 Labs: 06/07/19 09:00 Blood Blood Culture - Preliminary 06/07/19 09:03 Blood Blood Culture - Preliminary Laboratory WBC 13.1 X10^3/uL (3.6-10.0) H 06/10/19 08:30 RBC 4.49 X10^6/uL (3.5-5.4) 06/10/19 08:30 Hgb 12.0 g/dL (12.0-16.0) 06/10/19 08:30 Hct 36.6 % (36.0-47.0) 06/10/19 08:30 MCV 81.4 fL (80.0-100.0) 06/10/19 08:30 MCH 26.8 pg (27.0-34.0) L 06/10/19 08:30 MCHC 32.9 g/dL (33.0-35.0) L 06/10/19 08:30 RDW 16.3 % (11.6-16.5) 06/10/19 08:30 Plt Count 543 X10^3/uL (150.0-450.0) H 06/10/19 08:30 MPV 8.2 fL (7.4-11.0) 06/10/19 08:30 Neut % (Auto) 46.6 % (42.0-75.0) 06/10/19 08:30 Lymph % (Auto) 42.6 % (21.0-51.0) 06/10/19 08:30 [place] % (Auto) 5.3 % (0.0-13.0) 06/10/19 08:30 Eos % (Auto) 4.0 % (0.9-2.9) H 06/10/19 08:30 Baso % (Auto) 1.5 % (0.2-1.0) H 06/10/19 08:30 Neut # (Auto) 6.1 x10^3/uL (2.2-4.8) H 06/10/19 08:30 Lymph # (Auto) 5.6 X10^3/uL (1.3-2.9) H 06/10/19 08:30 [place] # (Auto) 0.7 x10^3/uL (0.3-0.8) 06/10/19 08:30 Eos # (Auto) 0.5 x10^3/uL (0.0-0.2) H 06/10/19 08:30 Baso # (Auto) 0.2 X10^3/uL (0.0-0.1) H 06/10/19 08:30 Absolute Nucleated RBC 0.3 /100WBC 06/10/19 08:30 PT 13.0 SECONDS (11.8-14.3) 06/07/19 00:20 INR Target Range - 06/07/19 00:20 INR 1.02 (0.8-1.3) 06/07/19 00:20 APTT 28.6 SECONDS (22.9-36.5) 06/07/19 00:20 PTT Comment - 06/07/19 00:20 Sodium 135 mmol/L (136-145) L 06/10/19 08:30 Corrected Sodium 142 mmol/L (136-145) 06/10/19 08:30 Potassium 4.1 mmol/L (3.5-5.1) 06/10/19 08:30 Chloride 100 mmol/L (98-107) 06/10/19 08:30 Carbon Dioxide 27.9 mmol/L (21-32) 06/10/19 08:30 BUN 11 mg/dL (7-18) 06/10/19 08:30 Creatinine 1.11 mg/dL (0.55-1.02) H 06/10/19 08:30 Est GFR (MDRD) Af Amer > 60 (>60) 06/10/19 08:30 Est GFR (MDRD) Non-Af 55 (>60) L 06/10/19 08:30 Glucose 392 mg/dL (65-99) H 06/10/19 08:30 POC Glucose (mg/dL) 298 mg/dL (65-99) H 06/10/19 05:54 Hemoglobin A1c 11.7 % 06/07/19 05:50 Calcium 10.8 mg/dL (8.5-10.1) H 06/10/19 08:30 Corrected Calcium TNP 06/10/19 08:30 Magnesium 1.7 mg/dL (1.7-2.9) 06/08/19 04:12 Total Bilirubin 0.40 mg/dL (0.2-1.0) 06/10/19 08:30 AST 23 Units/L (15-37) 06/10/19 08:30 ALT 37 Units/L (12-78) 06/10/19 08:30 Alkaline Phosphatase 134 Units/L (46-116) H 06/10/19 08:30 Creatine Kinase 148 Units/L (26-192) 06/07/19 00:20 CK-MB (CK-2) 3.0 ng/mL (0-4.0) 06/07/19 00:20 CK/CKMB % Calc 2.0 % (<4) 06/07/19 00:20 Troponin I 0.02 ng/mL (0-1.5) 06/07/19 00:20 Total Protein 7.1 g/dL (6.4-8.2) 06/10/19 08:30 Albumin 3.6 g/dL (3.4-5.0) 06/10/19 08:30 Globulin 3.5 g/dL (2.5-4.5) 06/10/19 08:30 Albumin/Globulin Ratio 1.0 Ratio (1.1-2.1) L 06/10/19 08:30 Amylase 85 Units/L (25-115) 06/07/19 00:20 Lipase 443 Units/L (73-393) H 06/07/19 00:20 TSH 3rd Generation 3.820 uIU/mL (0.358-3.74) H 06/07/19 05:50 HCG, Qual Negative <10 mIU/mL 06/07/19 00:20 Specimen Type Clean catch urine 06/07/19 02:50 Urine Color Pale yellow (YELLOW) 06/07/19 02:50 Urine Appearance Clear (CLEAR) 06/07/19 02:50 Urine pH 6.5 (5.0 - 8.0) 06/07/19 02:50 Ur Specific [place] 1.010 (1.000-1.030) 06/07/19 02:50 Urine Protein 3+ (NEGATIVE) 06/07/19 02:50 Urine Glucose (UA) 4+ (NEGATIVE) 06/07/19 02:50 Urine Ketones Negative (NEGATIVE) 06/07/19 02:50 Urine Occult Blood Negative (NEGATIVE) 06/07/19 02:50 Urine Nitrite Negative (NEGATIVE) 06/07/19 02:50 Urine Bilirubin Negative (NEGATIVE) 06/07/19 02:50 Urine Urobilinogen Normal (NORMAL) 06/07/19 02:50 Ur Leukocyte Esterase Negative (NEGATIVE) 06/07/19 02:50 Urine RBC None seen /HPF (0-3) 06/07/19 02:50 Urine WBC None seen /HPF (0-5) 06/07/19 02:50 Ur Squamous Epith Cells Rare /HPF (NEGATIVE) 06/07/19 02:50 Urine Bacteria Negative /HPF (NEGATIVE) 06/07/19 02:50 Ur Culture Indicated? No/not indicated 06/07/19 02:50 Ur Random Calcium 7.8 mg/dl (2-17.5) 06/08/19 06:25 Ur 24 Hour Volume 4250 ml/24 hr (600-1600) H 06/08/19 06:25 Ur Calcium 24 Hr 332 mg/24 hr (42-353) 06/08/19 06:25 Vancomycin Trough 7.4 ug/mL (15-20) L 06/09/19 21:05 Urine Opiates Screen Negative (NEG=<300) 06/08/19 12:32 Urine Methadone Screen Negative (NEG=<300) 06/08/19 12:32 Ur Barbiturates Screen Negative (NEG=<200) 06/08/19 12:32 Ur Phencyclidine Scrn Negative (NEG=<25) 06/08/19 12:32 Ur Amphetamines Screen Negative (NEG=<1000) 06/08/19 12:32 U Benzodiazepines Scrn Negative (NEG=<200) 06/08/19 12:32 Urine Cocaine Screen Negative (NEG=<300) 06/08/19 12:32 U Marijuana (THC) Screen Negative (NEG=<50) 06/08/19 12:32 Plan (1) Bacteremia: Status: Acute Plan: 06/07/19: both cultures (one from port, 2nd peripheral): Gram positive cocci Repeat pending continue vancomycin and zosyn Echo pending Surgery consult for port removal (2) Hyperglycemia: Status: Acute Plan: increase Levemir 35 units BID, SSI. Patient has been eating a lot including sweet drinks and sodas. (3) Gastroenteritis: Status: Acute Plan: CTAP negative for acute infection. KUB negative for obstruction, she has been tolerating diet and no further episodes of vomiting. Resolved (4) Fall: Status: Acute Qualifiers: Encounter type: initial encounter Qualified Code(s): W19.XXXA - Unspecified fall, initial encounter Plan: Left knee pain, XR with no acute fracture, continue pain control (5) Uncontrolled type 2 diabetes mellitus: Status: Acute Qualifiers: Glycemic state: with hyperglycemia Qualified Code(s): E11.65 - Type 2 diabetes mellitus with hyperglycemia Plan: A1C: 11.7 Increase Levemir 35 units BID and SSI (6) Disc herniation: Status: Acute Qualifiers: Spinal region: unspecified cervical region Qualified Code(s): M50.20 - Other cervical disc displacement, unspecified cervical region Plan: chronic multilevel DDD, on Dilaudid PO 4 mg TID at home, was initially started on IV Dilaudid as she was not able to keep anything down. Was not able to be aroused yesterday, one dose of Narcan given. Patient awake this AM, discussed the side effects of narcotics causing sedation. Will resume home dose of Dilaudid with careful monitoring, gabapentin 800 mg qHS and start tizanidine 4 mg BID prn for muscle spasms. (7) Left knee pain: Status: Acute Qualifiers: Chronicity: acute Qualified Code(s): M25.562 - Pain in left knee (8) Accelerated hypertension: Status: Acute Plan: continue lisinopril 20 mg and adjust as needed (9) Hepatomegaly: Status: Acute Plan: As seen on CT (10) Hypercalcemia: Status: Acute Plan: Ca: 10.8, continue to monitor. (11) History of embolism: Status: Acute Plan: Hx of DVT and PE, on eliquis (12) Constipation: Status: Acute Qualifiers: Constipation type: unspecified constipation type Qualified Code(s): K59.00 - Constipation, unspecified Plan: continue miralax and Colace. (13) Edema of upper extremity: Status: Acute Plan: swelling reduced, likely due to IVF given initially. (14) Hodgkins disease: Status: Acute Qualifiers: Hodgkin lymphoma type: unspecified type Lymphoma site: unspecified region Qualified Code(s): C81.90 - Hodgkin lymphoma, unspecified, unspecified site Plan: hx of Hodgkins lymphoma, sees Oncologist in [place], completed chemotherapy years ago.
[2019-06-10 12:20] VITALS: BP 137/76
--- NOTE | 2019-06-10 13:41 | W.DIS.FURT ---
Summary of Discharge Discharge Summary of Date Date of Exam: 06/10/19 Admission Date Date of Admission: 06/06/19 Admission Diagnosis Hospital Course: Ms. Mcclure is a 49y/o female with a PMH of uncontrolled type 2 DM, Hodgkins lymphoma, Hx of PE and DVT, Hypercalcemia, HTN, chronic opioid user for disc herniation and COPD presented with a 2-3 day hx of nausea and vomiting. She reports not being able to keep anything down since yesterday, including her medications. She states this happens when her calcium is high so she presented to the ED for further care. She also had a fall at home where she injured her knee. In the ER, CTAP was negative for any acute infectious process. CT-head was negative. Knee XR did not show any acute fracture. She was noted to have elevated calcium and started on IVF and received one dose of lasix. She also had elevated BP 190/94 and given clonidine. Her blood sugar was elevated in the 400s, started on Levemir BID and SSI. Patient continued to have nausea and vomiting, KUB negative for obstruction. Blood cultures from admission came back positive for gram positive cocci. She was started on Vanc and Zosyn until final cultures were reported. Patient was very drowsy on the second day as she was getting IV Dilaudid instead of her home PO Dilaudid as she was not able to keep anything down. She was given a dose of narcan and she was awake after that. It was discussed that narcotics and other sedatives will be held until she is more awake and alert. Patient's nausea and vomiting resolved and she was tolerated oral intake. Due to patient's initial port culture being positive, it was discussed in detail that patient would have to have port removed. Patient is only using the port now for access as she stated it is very difficult to get peripheral IV on her arms. She has had the current port for about 2 years. She denies any pain or infection around the site. Patient was seen by Dr. Izaguirre and he also recommended port removal. Echo was negative for any vegetations. Patient refused antibiotics due to being concerned about her renal function. Final cultures came back as coag-neg staph hemolyticus x 2, repeat cultures negative. So the positive culture is likely a contaminant. Patient's WBC came down and she remained afebrile. Patient was educated about her diabetes management with dietary changes and exercise. She was also told to check her blood sugars daily. She was also started on lisinopril and her BP remained well controlled. She is living in [place], currently visiting her family here in [place]. She will follow up with her PCP as scheduled. Vital Signs: Vital Signs (72 hours) 06/07/19 15:44 06/07/19 16:00 06/07/19 16:14 Temperature 98.1 F Pulse Rate [Left Radial] 90 Respiratory Rate 19 20 20 Blood Pressure [Left Arm] 161/91 O2 Sat by Pulse Oximetry 93 L 06/07/19 20:00 06/07/19 20:17 06/07/19 20:47 Temperature 96.8 F L Pulse Rate [Left Radial] 102 H Respiratory Rate 20 20 18 Blood Pressure [Left Arm] 182/84 O2 Sat by Pulse Oximetry 98 06/08/19 00:00 06/08/19 02:01 06/08/19 02:31 Temperature 98.6 F Pulse Rate [Left Radial] 119 H Respiratory Rate 16 20 16 Blood Pressure [Left Arm] 145/82 O2 Sat by Pulse Oximetry 96 06/08/19 04:00 06/08/19 06:10 06/08/19 06:36 Temperature 99 F Pulse Rate [Left Radial] 105 H Respiratory Rate 12 18 14 Blood Pressure [Left Arm] 178/95 O2 Sat by Pulse Oximetry 96 06/08/19 08:00 06/08/19 12:00 06/08/19 16:00 Temperature 97.7 F 97.7 F 98.4 F Pulse Rate [Left Radial] 122 H 112 H 116 H Respiratory Rate 20 20 20 Blood Pressure [Left Arm] 122/51 123/74 152/87 O2 Sat by Pulse Oximetry 92 L 98 100 06/08/19 20:00 06/09/19 00:00 06/09/19 04:00 Temperature 98.1 F 99.8 F H 98.0 F Pulse Rate [Left Radial] 118 H 126 H 109 H Respiratory Rate 20 18 16 Blood Pressure [Left Arm] 137/80 134/72 140/79 O2 Sat by Pulse Oximetry 96 94 L 96 06/09/19 08:00 06/09/19 10:29 06/09/19 10:59 Temperature 98.1 F Pulse Rate [Left Radial] 106 H Respiratory Rate 20 18 14 Blood Pressure [Left Arm] 160/83 O2 Sat by Pulse Oximetry 96 06/09/19 12:00 06/09/19 16:00 06/09/19 17:59 Temperature 98.2 F 98.6 F Pulse Rate [Left Radial] 94 H 96 H Respiratory Rate 24 20 16 Blood Pressure [Left Arm] 121/73 134/85 O2 Sat by Pulse Oximetry 91 L 97 06/09/19 18:29 06/09/19 20:00 06/10/19 00:00 Temperature 98.5 F 98.5 F Pulse Rate [Left Radial] 92 H 92 H Respiratory Rate 16 18 18 Blood Pressure [Left Arm] 164/85 138/83 O2 Sat by Pulse Oximetry 97 96 06/10/19 04:00 06/10/19 08:00 06/10/19 12:00 Temperature 97.9 F 98.1 F 99.0 F Pulse Rate [Left Radial] 87 94 H 94 H Respiratory Rate 14 20 20 Blood Pressure [Left Arm] 141/73 151/82 137/76 O2 Sat by Pulse Oximetry 97 91 L 98 Labs: Laboratory Last Values WBC 13.1 X10^3/uL (3.6-10.0) H 06/10/19 08:30 RBC 4.49 X10^6/uL (3.5-5.4) 06/10/19 08:30 Hgb 12.0 g/dL (12.0-16.0) 06/10/19 08:30 Hct 36.6 % (36.0-47.0) 06/10/19 08:30 MCV 81.4 fL (80.0-100.0) 06/10/19 08:30 MCH 26.8 pg (27.0-34.0) L 06/10/19 08:30 MCHC 32.9 g/dL (33.0-35.0) L 06/10/19 08:30 RDW 16.3 % (11.6-16.5) 06/10/19 08:30 Plt Count 543 X10^3/uL (150.0-450.0) H 06/10/19 08:30 MPV 8.2 fL (7.4-11.0) 06/10/19 08:30 Neut % (Auto) 46.6 % (42.0-75.0) 06/10/19 08:30 Lymph % (Auto) 42.6 % (21.0-51.0) 06/10/19 08:30 Logan % (Auto) 5.3 % (0.0-13.0) 06/10/19 08:30 Eos % (Auto) 4.0 % (0.9-2.9) H 06/10/19 08:30 Baso % (Auto) 1.5 % (0.2-1.0) H 06/10/19 08:30 Neut # (Auto) 6.1 x10^3/uL (2.2-4.8) H 06/10/19 08:30 Lymph # (Auto) 5.6 X10^3/uL (1.3-2.9) H 06/10/19 08:30 Logan # (Auto) 0.7 x10^3/uL (0.3-0.8) 06/10/19 08:30 Eos # (Auto) 0.5 x10^3/uL (0.0-0.2) H 06/10/19 08:30 Baso # (Auto) 0.2 X10^3/uL (0.0-0.1) H 06/10/19 08:30 Absolute Nucleated RBC 0.3 /100WBC 06/10/19 08:30 PT 13.0 SECONDS (11.8-14.3) 06/07/19 00:20 INR Target Range - 06/07/19 00:20 INR 1.02 (0.8-1.3) 06/07/19 00:20 APTT 28.6 SECONDS (22.9-36.5) 06/07/19 00:20 PTT Comment - 06/07/19 00:20 Sodium 135 mmol/L (136-145) L 06/10/19 08:30 Corrected Sodium 142 mmol/L (136-145) 06/10/19 08:30 Potassium 4.1 mmol/L (3.5-5.1) 06/10/19 08:30 Chloride 100 mmol/L (98-107) 06/10/19 08:30 Carbon Dioxide 27.9 mmol/L (21-32) 06/10/19 08:30 BUN 11 mg/dL (7-18) 06/10/19 08:30 Creatinine 1.11 mg/dL (0.55-1.02) H 06/10/19 08:30 Est GFR (MDRD) Af Amer > 60 (>60) 06/10/19 08:30 Est GFR (MDRD) Non-Af 55 (>60) L 06/10/19 08:30 Glucose 478 mg/dL (65-99) H 06/10/19 12:17 POC Glucose (mg/dL) 414 mg/dL (65-99) H 06/10/19 11:56 Hemoglobin A1c 11.7 % 06/07/19 05:50 Calcium 10.8 mg/dL (8.5-10.1) H 06/10/19 08:30 Corrected Calcium TNP 06/10/19 08:30 Ionized Calcium Vero 1.49 mmol/L (1.11-1.30) H 06/07/19 05:50 Ionized Calcium pH 7.4 1.45 mmol/L (1.11-1.30) H 06/07/19 05:50 Magnesium 1.7 mg/dL (1.7-2.9) 06/08/19 04:12 Total Bilirubin 0.40 mg/dL (0.2-1.0) 06/10/19 08:30 AST 23 Units/L (15-37) 06/10/19 08:30 ALT 37 Units/L (12-78) 06/10/19 08:30 Alkaline Phosphatase 134 Units/L (46-116) H 06/10/19 08:30 Creatine Kinase 148 Units/L (26-192) 06/07/19 00:20 CK-MB (CK-2) 3.0 ng/mL (0-4.0) 06/07/19 00:20 CK/CKMB % Calc 2.0 % (<4) 06/07/19 00:20 Troponin I 0.02 ng/mL (0-1.5) 06/07/19 00:20 Total Protein 7.1 g/dL (6.4-8.2) 06/10/19 08:30 Albumin 3.6 g/dL (3.4-5.0) 06/10/19 08:30 Globulin 3.5 g/dL (2.5-4.5) 06/10/19 08:30 Albumin/Globulin Ratio 1.0 Ratio (1.1-2.1) L 06/10/19 08:30 Amylase 85 Units/L (25-115) 06/07/19 00:20 Lipase 443 Units/L (73-393) H 06/07/19 00:20 Carcinoembryonic Ag 5.4 ng/mL (0.0-3.0) H 06/07/19 05:50 TSH 3rd Generation 3.820 uIU/mL (0.358-3.74) H 06/07/19 05:50 HCG, Qual Negative <10 mIU/mL 06/07/19 00:20 PTH Intact 78 pg/mL (15-65) H 06/07/19 05:50 Calcium (PTH Intact) 10.3 mg/dL 06/07/19 05:50 Specimen Type Clean catch urine 06/07/19 02:50 Urine Color Pale yellow (YELLOW) 06/07/19 02:50 Urine Appearance Clear (CLEAR) 06/07/19 02:50 Urine pH 6.5 (5.0 - 8.0) 06/07/19 02:50 Ur Specific [place] 1.010 (1.000-1.030) 06/07/19 02:50 Urine Protein 3+ (NEGATIVE) 06/07/19 02:50 Urine Glucose (UA) 4+ (NEGATIVE) 06/07/19 02:50 Urine Ketones Negative (NEGATIVE) 06/07/19 02:50 Urine Occult Blood Negative (NEGATIVE) 06/07/19 02:50 Urine Nitrite Negative (NEGATIVE) 06/07/19 02:50 Urine Bilirubin Negative (NEGATIVE) 06/07/19 02:50 Urine Urobilinogen Normal (NORMAL) 06/07/19 02:50 Ur Leukocyte Esterase Negative (NEGATIVE) 06/07/19 02:50 Urine RBC None seen /HPF (0-3) 06/07/19 02:50 Urine WBC None seen /HPF (0-5) 06/07/19 02:50 Ur Squamous Epith Cells Rare /HPF (NEGATIVE) 06/07/19 02:50 Urine Bacteria Negative /HPF (NEGATIVE) 06/07/19 02:50 Ur Culture Indicated? No/not indicated 06/07/19 02:50 Ur Random Calcium 7.8 mg/dl (2-17.5) 06/08/19 06:25 Ur 24 Hour Volume 4250 ml/24 hr (600-1600) H 06/08/19 06:25 Ur Calcium 24 Hr 332 mg/24 hr (42-353) 06/08/19 06:25 Vancomycin Trough 7.4 ug/mL (15-20) L 06/09/19 21:05 Urine Opiates Screen Negative (NEG=<300) 06/08/19 12:32 Urine Methadone Screen Negative (NEG=<300) 06/08/19 12:32 Ur Barbiturates Screen Negative (NEG=<200) 06/08/19 12:32 Ur Phencyclidine Scrn Negative (NEG=<25) 06/08/19 12:32 Ur Amphetamines Screen Negative (NEG=<1000) 06/08/19 12:32 U Benzodiazepines Scrn Negative (NEG=<200) 06/08/19 12:32 Urine Cocaine Screen Negative (NEG=<300) 06/08/19 12:32 U Marijuana (THC) Screen Negative (NEG=<50) 06/08/19 12:32 Reason For Visit: HYPERCALCEMIA; CHRONIC PANCREATITIS;HYPERGLYCEMIA; Discharge Date Discharge Date: 06/10/19 Discharge Diagnosis All Active Problems (Updated 06/10/19 @ 16:03 by Amanda Jackson) Hodgkins disease (Acute) Edema of upper extremity (Acute) Bacteremia (Acute) Constipation (Acute) History of embolism (Acute) Disc herniation (Chronic) Uncontrolled type 2 diabetes mellitus (Acute) Fall (Acute) Gastroenteritis (Acute) Hyperglycemia (Acute) Psychosomatic disorder (Chronic) Kidney stone on left side (Chronic) Abdominal pain (Acute) Headache (Chronic) Hypertension (Acute) Dehydration (Acute) Muscle spasm of left lower extremity (Chronic) Vertigo (Acute) Muscle cramps (Chronic) Headache disorder (Acute) Encounter for care related to Port-a-Cath (Acute) Weakness (Acute) Fall (Acute) Anxiety state (neurotic) (Acute) Anxiety (Acute) Hypertension (Acute) Thrombocytosis (Acute) Hypercalcemia (Acute) Chronic pancreatitis (Acute) Hepatomegaly (Acute) Accelerated hypertension (Acute) Left knee pain (Acute) Leukocytosis (Acute) Plan of Treatment: Continue with present treatment and follow up plan. Pt is to keep follow up appointment as instructed and take medications as ordered. Discharge Medications Discharge Medications: acetaminophen [From Lorcet (hydrocodone)] Allergy (Verified 06/07/19 01:54) azithromycin [From Zithromax] Allergy (Verified 06/07/19 01:54) butorphanol [From Stadol] Allergy (Verified 06/07/19 01:54) codeine Allergy (Verified 06/07/19 01:54) hydralazine Allergy (Verified 06/07/19 01:54) hydrocodone Allergy (Verified 06/07/19 01:54) ibuprofen [From Motrin] Allergy (Verified 06/07/19 01:54) ketorolac [From Toradol] Allergy (Verified 06/07/19 01:54) levofloxacin [From Levaquin] Allergy (Verified 06/07/19 01:54) metoclopramide [From Reglan] Allergy (Verified 06/07/19 01:54) morphine Allergy (Verified 06/07/19 01:54) nalbuphine [From Nubain] Allergy (Verified 06/07/19 01:54) ondansetron [From Zofran] Allergy (Verified 06/07/19 01:54) oxycodone Allergy (Verified 06/07/19 01:54) propoxyphene [From Darvocet-N] Allergy (Verified 06/07/19 01:54) tramadol [From Ultram] Allergy (Verified 06/07/19 01:54) CONTINUE taking the following medications Eliquis 5 mg PO DAILY 06/07/19 [History] aspirin [Aspir-81] 81 mg PO DAILY 06/07/19 [History] atorvastatin [Lipitor] 20 mg PO DAILY 06/07/19 [History] gabapentin [Neurontin] 800 mg PO DAILY 06/07/19 [History] hydromorphone [Dilaudid] 4 mg PO Q8H PRN 06/07/19 [History] promethazine 25 mg PO Q8H PRN 06/07/19 [History] New Prescriptions insulin detemir U-100 [Levemir U-100 Insulin] 35 units SC BID 30 Days #21 ml 06/10/19 [Rx] lisinopril 20 mg PO DAILY 30 Days #30 tab 06/10/19 [Rx] Discharge Disposition Discharge Disposition: home
[2019-06-11] MEDS ORDERED: PHARMACY COMMENT IV NR (08:30)
== END 2019-06-10 13:55 | disposition home or self-care (01) ==
LOC: MED/SURG 21:44 → ER 21:44 → MED/SURG 06-07 03:10
PROVIDERS: ADMIT Family Medicine; ATTEND Family Medicine
DX: R60.0 Localized edema; B95.7 Other staphylococcus as the cause of diseases classified elsewhere; K86.1 Other chronic pancreatitis; M50.20 Other cervical disc displacement, unspecified cervical region; E83.52 Hypercalcemia; E11.65 Type 2 diabetes mellitus with hyperglycemia; Z86.711 Personal history of pulmonary embolism; J44.9 Chronic obstructive pulmonary disease, unspecified; M25.562 Pain in left knee; C81.90 Hodgkin lymphoma, unspecified, unspecified site; R78.81 Bacteremia; W18.39XA Other fall on same level, initial encounter; K59.00 Constipation, unspecified; R16.0 Hepatomegaly, not elsewhere classified; I10 Essential (primary) hypertension; Z86.718 Personal history of other venous thrombosis and embolism; K52.89 Other specified noninfective gastroenteritis and colitis; R94.31 Abnormal electrocardiogram [ECG] [EKG]
CPT/HCPCS: 36415; 70450; 71010; 71045; 73564; 74000; 74018; 74176; 80053; 80202; 80307; 81001; 81050; 82150; 82330; 82340; 82378; 82550; 82553; 82565; 82947; 83036; 83690; 83735; 83970; 84443; 84484; 84703; 85025; 85610; 85730; 87040; 87077; 87186; 93005; 93306; 96360; 96361; 96365; 96367; 96372; 96374; 96375; 99284; A4216; A4222; G0378; G0434; J0696; J1170; J1200; J1642; J1815; J1940; J2175; J2310; J2543; J2550; J3370; J3475; J7030; J7050; J7060